=== PATIENT | female | born 1960 | race Caucasian/White ===

== ENCOUNTER → 2020-05-04 | Outpatient (CLI) | payer BC ==
--- NOTE | 2020-05-04 08:34 | US ---
EXAMINATION TYPE: US abdomen complete DATE OF EXAM: 05/04/2020 COMPARISON: NONE CLINICAL HISTORY: R10.32 LLQ PAIN. LLQ pain EXAM MEASUREMENTS: Liver Length: 15 cm Gallbladder Wall: .2 cm CBD: .3 cm Spleen: 10.8 cm Right Kidney: 6.5 x 2.7 x 3.0 cm Left Kidney: 12.0 x 5.0 x 5.5 cm Pancreas: Obscured by bowel gas Liver: Cystic area 1.2 cm left lobe. Gallbladder: wnl Evidence for sonographic Jauregui's sign: No CBD: wnl Spleen: wnl Right Kidney: Atrophic Left Kidney: Multiple anechoic area largest 1.9 x 1.9 x 2.3cm. Upper IVC: wnl Abd Aorta: wnl IMPRESSION: 1. Hepatic cyst. 2. Left renal cysts. These may be peripelvic cysts
== END | disposition home or self-care (01) ==
LOC: RADUSWWP 07:32
PROVIDERS: ATTEND Family Medicine
DX: N28.1 Cyst of kidney, acquired (principal); K76.89 Other specified diseases of liver
CPT/HCPCS: 76700

== ENCOUNTER → 2020-05-15 | Outpatient (CLI) | payer BC ==
--- NOTE | 2020-05-15 15:48 | US ---
EXAMINATION TYPE: US groin LT DATE OF EXAM: 05/15/2020 COMPARISON: NONE CLINICAL HISTORY: R10.32 Left lower quadrant pain. Patient has odd pressure sensation within left zarina in, no pain but noticeable change in the past couple months, no known injury. Possible bowel containing hernia that does increase in size with valsalva, this area does sit adjacen t to iliac vessel within left groin. IMPRESSION: 1. Suspected left inguinal hernia containing loops of bowel.
== END | disposition home or self-care (01) ==
LOC: RADUSWWP 14:49
PROVIDERS: ATTEND Family Medicine
DX: R10.32 Left lower quadrant pain (principal)

== ENCOUNTER → 2020-07-16 | Outpatient (CLI) | payer BC ==
[2020-07-16 11:46] LABS: Basophils % (A) 1 %; Eosinophils # (A) 0.3 k/uL (0-0.7); Eosinophils % (A) 7 %; HCT 42.8 % (34.0-46.0); HGB 13.9 gm/dL (11.4-16.0); Lymphocytes # (A) 1.2 k/uL (1.0-4.8); Lymphocytes % (A) 35 %; MCH 31.2 pg (25.0-35.0); MCHC 32.6 g/dL (31.0-37.0); MCV 95.8 fL (80.0-100.0); Mean Platelet Volume 8.8; Monocytes # (A) 0.3 k/uL (0-1.0); Monocytes % (A) 8 %; Neutrophils # (A) 1.6 k/uL (1.3-7.7); RBC 4.47 m/uL (3.80-5.40); RDW 12.5 % (11.5-15.5); WBC 3.5 k/uL (3.8-10.6)
[2020-07-16 12:49] LABS: Platelet Count 147 k/uL (150-450)
== END | disposition home or self-care (01) ==
LOC: LABPAT 10:14
PROVIDERS: ATTEND Student in an Organized Health Care Education/Training Program
DX: Z01.818 Encounter for other preprocedural examination (principal)
CPT/HCPCS: 36415; 85025; 86850; 86900; 86901; 93005

== ENCOUNTER 2020-07-17 09:49 | Day surgery (SDC) | payer BC ==
[2020-07-13 15:30] VITALS: BMI 28.8
[~2020-07-17 09:49] MED LIST: DEXAMETHASONE SOD PHOSPHATE 4 MG/ML 1 ML VIAL IV ONE; HEPARIN SODIUM,PORCINE 5,000 UNIT/ML 1 ML VIAL SQ PRN; LACTATED RINGERS 1,000 ML IV SCH; MIDAZOLAM 2 MG/2 ML VIAL IV PRN; ONDANSETRON 4 MG/2 ML VIAL IVP ONE; SCOPOLAMINE 1.5MG/72HR PATCH TRANSDERM ONE
[2020-07-17] MEDS ORDERED: MIDAZOLAM 2 MG/2 ML VIAL IV ONE (10:33)
[2020-07-17] MEDS ORDERED: NEOSTIGMINE 1 MG/ML 10 ML VIAL ONE (11:30)
[2020-07-17] MEDS ORDERED: LIDOCAINE 1% INJ 10MG/ML (20 ML MDV) ONE (11:30)
[2020-07-17] MEDS ORDERED: PROPOFOL 10 MG/ML 20 ML VIAL IV ONE (11:30)
[2020-07-17] MEDS ORDERED: KETOROLAC 15 MG/ML 1 ML VIAL ONE (11:30)
[2020-07-17] MEDS ORDERED: ROCURONIUM 10 MG/ML (10 ML VIAL) IV ONE (11:30)
[2020-07-17] MEDS ORDERED: fentaNYL (PF) 50 MCG/ML 2 ML AMP ONE (11:30)
[2020-07-17] MEDS ORDERED: GLYCOPYRROLATE 0.2 MG/ML 2 ML VIAL ONE (11:30)
[2020-07-17] MEDS ORDERED: LIDOCAINE 1%-EPI 1:100,000 20 ML VIAL SQ ONE (12:50)
[2020-07-17] MEDS ORDERED: LACTATED RINGERS 1,000 ML IV ONE (12:51)
[2020-07-17] MEDS ORDERED: ONDANSETRON 4 MG/2 ML VIAL IVP ONE (13:13)
[2020-07-17 13:32] VITALS: TEMP 97.9
[2020-07-17] MEDS: HYDROmorphone 0.5 MG/0.5 ML SYRINGE IVP PRN ×2 (13:36→13:44)
--- NOTE | 2020-07-17 14:02 | P.OP ---
Date of Procedure: 07/17/20 Preoperative Diagnosis: Left inguinal hernia Postoperative Diagnosis: same Procedure(s) Performed: Robotic assisted left inguinal hernia repair Anesthesia: VÍCTOR Surgeon: Wade Arguelles Estimated Blood Loss (ml): 5 Condition: stable Disposition: PACU Description of Procedure: Patient is brought operative suite remained in supine position underwent general endotracheal anesthesia per Department of anesthesia prepped and draped in usual sterile fashion timeout performed correct patient correct procedure correct site was verified a 1.5 cm incision was made and spared umbilicus carried down the fascia which was incised and the abdomen was entered under direct visualization 8 mm port was placed and the abdomen was insufflated no injuries were noted 8 mm ports are placed on the lateral sides of this and the robot was docked the patient was placed in Trendelenburg and there is a left-sided defect noted there was no right-sided defect noted the peritoneum was taken down hernia was reduced the peritoneum was taken down to the pubis medially and the so as laterally and posteriorly. Mesh was placed [employer] associate mesh and noted to have good coverage. The peritoneum was then reapproximated using 20 the lack suture there was a small hole in the peritoneum which was repaired with a 3-0 Vicryl stitch. Stitches were removed ports removed under direct visualization the abdomen was desufflated and the midline fascia was closed with an 0 Vicryl. Patient tolerated the procedure well there are no apparent complications the skin was closed with 4-0 Monocryl and skin glue. Plan - Discharge Summary Discharge Rx Participant: No New Discharge Prescriptions: New Docusate [Colace] 100 mg PO BID 5 Days #10 capsule HYDROcodone/APAP 5-325MG [[place] 5-325] 1 tab PO Q6HR PRN 3 Days #12 tab PRN Reason: Pain No Action PARoxetine [Paxil] 20 mg PO HS Discharge Medication List PARoxetine [Paxil] 20 mg PO HS 07/13/20 [History] Docusate [Colace] 100 mg PO BID 5 Days #10 capsule 07/17/20 [Rx] HYDROcodone/APAP 5-325MG [[place] 5-325] 1 tab PO Q6HR PRN 3 Days #12 tab 07/17/20 [Rx] Follow up Appointment(s)/Referral(s): Wade Arguelles, [Doctor of Osteopathic Medicine] - 2 Weeks Activity/Diet/Wound Care/Special Instructions: No lifting over 10 lbs for 5 weeks No swimming or baths for 3 weeks Shower tomorrow is ok Discharge Disposition: HOME SELF-CARE
[2020-07-17 14:05] VITALS: RESP 16
[2020-07-17] MEDS ORDERED: HYDROcodone/APAP 5-325MG 1 EACH TAB ONE (14:37)
[2020-07-17] MEDS ORDERED: METOCLOPRAMIDE 5 MG/ML 2 ML VIAL ONE (15:04)
[2020-07-17] MEDS ORDERED: METOCLOPRAMIDE 5 MG/ML 2 ML VIAL IVP ONE (15:07)
[2020-07-17 15:51] VITALS: BP 133/71; PULSE 67
== END 2020-07-17 17:22 | disposition home or self-care (01) ==
LOC: OR 09:49
PROVIDERS: ATTEND Student in an Organized Health Care Education/Training Program
DX: K40.90 Unilateral inguinal hernia, without obstruction or gangrene, not specified as recurrent (principal); F32.9 Major depressive disorder, single episode, unspecified; Z79.899 Other long term (current) drug therapy; Z80.3 Family history of malignant neoplasm of breast; Z98.890 Other specified postprocedural states
CPT/HCPCS: 49650; C1781; J2250; J1644; J1100; J2710; J2765; J0690; J2405; J2001; J3010; J1885; J2704; J1170; 86850; 86900; 86901

== ENCOUNTER → 2021-07-22 | Outpatient (CLI) | payer BC ==
--- NOTE | 2021-07-22 09:38 | US ---
EXAMINATION TYPE: US abdomen complete DATE OF EXAM: 07/22/2021 COMPARISON: 05/04/2020 CLINICAL HISTORY: 60-year-old female R93.2 Abn findings. 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 TECHNIQUE: Multiple sonographic images of the abdomen are obtained. FINDINGS: EXAM MEASUREMENTS: Liver Length: 13.5 cm Gallbladder Wall: 0.2 cm CBD: 0.2 cm Spleen: 8.4 cm Right Kidney: 7.6 x 3.7 x 3.4 cm Left Kidney: 12.5 x 5.9 x 5.5. cm Pancreas: Suboptimal visualization of the pancreatic tail due to shadowing from bowel gas. Visualize d head and body show no gross adenopathy. Liver: Minimally complex cyst measuring 1.5 x 1.8 x 0.9cm seen in left lobe (versus 1.2 cm, previou sly). Some minimal internal septation or nodularity/debris is present. Given indolent behavior, consi cass annual surveillance. Gallbladder: wnl Evidence for sonographic Jauregui's sign: no CBD: wnl Spleen: wnl Right Kidney: Atrophic. Tiny cortical cyst noted = 0.5 x 0.6 x 0.7cm. Left Kidney: appearance of prominent calyces throughout; possible cortical cyst lower pole = 0.8 x 0 .9 x 0.8cm; extracapsular hypoechoic crescent shaped area noted suggestive of sonographic " sweat sig n" for chronic kidney disease. Upper IVC: wnl Abd Aorta: size is wnl, borderline ectatic upper portion at 2.5 cm. IMPRESSION: 1. A minimally complex cyst in the left liver lobe measures 1.8 cm versus 1.2 cm on 05/04/2020. A hiram ign etiology is suggested given indolent behavior. Consider annual surveillance. 2. No gallstones or biliary ductal dilatation. 3. Atrophic right kidney. 4. Some centrally located cystic areas in the left kidney similar to prior, likely parapelvic cysts. The largest measures 9 mm. At the patient has worsening kidney function, consider CT urogram or kidne y MRI to ensure that these represent parapelvic cysts rather than hydronephrosis.
== END | disposition home or self-care (01) ==
LOC: RADUSWWP 08:15
PROVIDERS: ATTEND Family Medicine
DX: K76.89 Other specified diseases of liver (principal); N26.1 Atrophy of kidney (terminal); N28.1 Cyst of kidney, acquired
CPT/HCPCS: 76700

== ENCOUNTER → 2021-11-08 | Outpatient (CLI) | payer BC ==
--- NOTE | 2021-11-11 22:10 | CT ---
EXAMINATION TYPE: CT abdomen pelvis wo con DATE OF EXAM: 11/08/2021 COMPARISON: Ultrasound dated 07/22/2021 HISTORY: renal cyst and hydronephrosis CT DLP: 713.50 mGycm Automated exposure control for dose reduction was used. TECHNIQUE: Helical acquisition of images was performed from the lung bases through the pelvis. FINDINGS: LUNG BASES: Lingular basal atelectasis with tiny 2 mm nodule in the right lung bases. LIVER/GB: A few hepatic hypodensities likely representing hepatic cysts. Unremarkable gallbladder. PANCREAS: Fatty infiltration of the pancreatic head. SPLEEN: No significant abnormality is seen. ADRENALS: No significant abnormality is seen. KIDNEYS: Atrophic right kidney. Multiple left parapelvic renal cysts. Associated hydronephrosis is un likely yet cannot be excluded by this unenhanced CT scan. No gross suspicious renal lesion yet cannot be totally excluded. No hydroureter bilaterally. No right-sided hydronephrosis. FREE AIR: No free air is visualized RETROPERITONEAL ADENOPATHY: None visualized REPRODUCTIVE ORGANS: No gross uterine or adnexal mass. URINARY BLADDER: Incompletely distended. PELVIC ADENOPATHY: No pathologically enlarged pelvic lymph nodes. OSSEOUS STRUCTURES: No gross aggressive bone lesion. BOWEL: No significant abnormality is seen. OTHER: Scattered arterial atherosclerotic calcifications. No sizable ascites. Small fat-containing um bilical hernia. Right inferior pelvic fat stranding, possibly related to previous omental fat infarct . Suspected changes of previous hernia repair in the left lower quadrant. Left fat-containing inguina l hernia is still noted. IMPRESSION: Left parapelvic renal cysts. Associated hydronephrosis is unlikely yet cannot be totally excluded by this nonenhanced CT scan. CT urogram or renal scintigraphy would be the modality of choice to rule ou t associated hydronephrosis. No right-sided hydronephrosis or hydroureter bilaterally. Atrophic right kidney. Other incidental findings as described above.
== END | disposition home or self-care (01) ==
LOC: RADCTMAIN 17:40
PROVIDERS: ATTEND Urology
DX: N28.1 Cyst of kidney, acquired (principal); N13.30 Unspecified hydronephrosis; N26.1 Atrophy of kidney (terminal)
CPT/HCPCS: 74176

== ENCOUNTER → 2022-01-03 | Outpatient (CLI) | payer BC ==
--- NOTE | 2022-01-03 08:45 | US ---
EXAMINATION TYPE: US renal artery duplex complet DATE OF EXAM: 01/03/2022 COMPARISON: CT 11/08/2021, and US 07/22/2021 CLINICAL HISTORY: N26.1 ATROPHY OF KIDNEY (TERMINAL). MEASUREMENTS: RENAL SIZE: Rt Kidney: 6.1 x 3.1 x 3.5 cm Lt Kidney: 13.4 x 6.9 x 6.6 cm RESISTANCE INDEX Right: 0.59 Left: 0.58 RA/AO RATIO (< 3.5 ) Right: 2.2 Left: 1.2 RA VELOCITY ( < 180 cm/s) Right: 188 - 239 proximally Left: 137 Aorta unremarkable. Right renal atrophy, left parapelvic cysts noted, largest measures 2.4 x 2.2 cm. There is mildly elevated right renal artery velocity proximally. There is color perfusion to right ki dney with normal segmental and arcuate flow. Good upstroke on segmentals at renal hilum. IMPRESSION: 1. Right renal artery ultrasound with elevated velocities suggesting underlying stenosis. The right k idney appears atrophic. 2. Left renal vascular evaluation appears normal.
== END | disposition home or self-care (01) ==
LOC: RADUSWWP 06:55
PROVIDERS: ATTEND Internal Medicine Nephrology
DX: N26.1 Atrophy of kidney (terminal) (principal)
CPT/HCPCS: 93975

== ENCOUNTER 2022-03-23 04:26 | Emergency (ER) | payer BC ==
[2022-03-23 04:37] VITALS: RESP 16; TEMP 97.5
[2022-03-23] MEDS ORDERED: HYDROcodone/APAP 5-325MG 1 EACH TAB PO STA (05:20)
[2022-03-23 05:41] VITALS: PULSE 65
[2022-03-23] MEDS ORDERED: ONDANSETRON ODT 4 MG TAB PO STA (05:44)
--- NOTE | 2022-03-23 06:00 | XR ---
EXAMINATION TYPE: XR wrist complete RT DATE OF EXAM: 03/23/2022 COMPARISON: NONE HISTORY: Fall. Pain TECHNIQUE: 4 views FINDINGS: The carpal bones are intact. I see no fracture nor dislocation. There is some soft tissue s welling on the dorsum of the carpus. Metacarpals are intact. IMPRESSION: Soft tissue swelling. No fracture seen.
--- NOTE | 2022-03-23 06:10 | CT ---
EXAMINATION TYPE: CT brain wo con DATE OF EXAM: 03/23/2022 COMPARISON: None HISTORY: fall CT DLP: 1143.4 mGycm Automated exposure control for dose reduction was used. Ventricles have normal size. There is no mass effect or midline shift. No sign of intracranial hemorr sharif. The calvarium is intact. There is right lateral frontal scalp hematoma. No fractures seen. Skul l base is intact. There is normal aeration of the mastoid sinuses. IMPRESSION: Normal CT scan of the brain. Right lateral frontal scalp hematoma.
--- NOTE | 2022-03-23 06:39 | ED ---
Head Injury HPI - General Chief complaint: Head Injury Stated complaint: Head Injury Time Seen by Provider: 03/23/22 05:13 Source: patient Mode of arrival: ambulatory Limitations: no limitations - History of Present Illness Initial comments: This patient is 61-year-old woman who states that as she was walking into work she ran into a sign in the darkened parking lot. The sign struck her right hand and her head, right temporal area. She is having swelling and pain of both of these locations. There was no loss of consciousness. She denies neck pain or injury. No neurologic symptoms. No weakness or numbness of the hand though she does have pain with flexion MD Complaint: head injury -: hour(s) Mechanism of Injury: other Location: temporal Loss of Consciousness: no Previous Trauma to this Area: No Place: work Severity: moderate Quality: aching Consistency: constant Provoking factors: none known Other Injuries: RUE Associated Symptoms: denies other symptoms - Related Data Home Medications Medication Instructions Recorded Confirmed PARoxetine [Paxil] 20 mg PO HS 07/13/20 07/17/20 Previous Rx's Medication Instructions Recorded Docusate [Colace] 100 mg PO BID 5 Days #10 capsule 07/17/20 HYDROcodone/APAP 5-325MG [[place] 1 tab PO Q6HR PRN 3 Days #12 tab 07/17/20 5-325] Acetaminophen-Codeine 300-30mg 1 tab PO Q4H PRN #20 tablet 03/23/22 [Tylenol w/codeine #3] Allergies/Adverse reactions: Allergies Allergy/AdvReac Type Severity Reaction Status Date / Time No Known Allergies Allergy Verified 07/17/20 10:15 Review of Systems ROS Statement: Those systems with pertinent positive or pertinent negative responses have been documented in the HPI. ROS Other: All systems not noted in ROS Statement are negative. Constitutional: Denies: fever, weakness Eyes: Denies: eye pain, vision change ENT: Denies: ear pain, hearing loss, epistaxis Cardiovascular: Denies: chest pain, palpitations, syncope Gastrointestinal: Denies: abdominal pain, nausea, vomiting Musculoskeletal: Reports: as per HPI, joint swelling, arthralgia. Denies: back pain Skin: Denies: rash Neurological: Reports: headache. Denies: weakness, numbness, paresthesias, confusion, abnormal gait Hematological/Lymphatic: Denies: easy bleeding Past Medical History Additional Past Medical History / Comment(s): kidney stones History of Any Multi-Drug Resistant Organisms: None Reported Past Surgical History: Breast Surgery, Orthopedic Surgery Additional Past Surgical History / Comment(s): colonoscopy, breast biopsy, cole. bunionectomy, D & C, skin tags removed Past Anesthesia/Blood Transfusion Reactions: No Reported Reaction Smoking Status: Never smoker - Past Family History Sister(s) Family Medical History: Cancer Additional Family Medical History / Comment(s): breast Mother Family Medical History: Cancer General Exam Limitations: no limitations General appearance: alert, in no apparent distress Head exam: Present: normocephalic, other (Hematoma right temporal area. No palpable deformity. Moderate tenderness) Eye exam: Present: normal appearance, PERRL, EOMI. Absent: scleral icterus, conjunctival injection, nystagmus, periorbital swelling, periorbital tenderness ENT exam: Present: normal oropharynx, TM's normal bilaterally, normal external ear exam Neck exam: Present: normal inspection, full ROM. Absent: tenderness Respiratory exam: Present: normal lung sounds bilaterally. Absent: respiratory distress, wheezes, rales, rhonchi, stridor Cardiovascular Exam: Present: regular rate, normal rhythm, normal heart sounds. Absent: systolic murmur, diastolic murmur, rubs GI/Abdominal exam: Present: soft. Absent: tenderness Right Elbow exam: Present: normal inspection, full ROM. Absent: tenderness, swelling Forearm Wrist exam: Present: normal inspection, full ROM. Absent: tenderness, swelling Hand Wrist exam: Present: tenderness, swelling, ecchymosis. Absent: full ROM, abrasion, laceration, deformity, crepitus, dislocation, erythema, amputation, nail avulsion, subungual hematoma Back exam: Present: normal inspection. Absent: vertebral tenderness Course Vital Signs 03/23/22 03/23/22 03/23/22 04:31 05:39 06:53 Temperature 97.5 F L Pulse Rate 67 65 65 Respiratory 16 16 16 Rate Blood Pressure 140/82 140/86 140/68 O2 Sat by Pulse 97 99 98 Oximetry Disposition Clinical Impression: Hematoma of scalp, Hand contusion Disposition: HOME SELF-CARE Condition: Good Instructions (If sedation given, give patient instructions): Head Injury (ED) Prescriptions: Acetaminophen-Codeine 300-30mg [Tylenol w/codeine #3] 1 tab PO Q4H PRN #20 tablet PRN Reason: Pain Is patient prescribed a controlled substance at d/c from ED?: No Referrals: Patt Castro III, MD [Primary Care Provider] - 1-2 days
[2022-03-23 06:54] VITALS: BP 140/68
== END 2022-03-23 07:04 | disposition home or self-care (01) ==
LOC: EC 04:26
DX: S00.03XA Contusion of scalp, initial encounter (principal); S60.221A Contusion of right hand, initial encounter; W22.8XXA Striking against or struck by other objects, initial encounter; Y92.69 Other specified industrial and construction area as the place of occurrence of the external cause; Y93.01 Activity, walking, marching and hiking
CPT/HCPCS: 70450; 99284

== ENCOUNTER → 2022-05-13 | Outpatient (CLI) | payer BC ==
--- NOTE | 2022-05-13 09:26 | BD ---
EXAMINATION TYPE: Axial Bone Density DATE OF EXAM: 05/13/2022 COMPARISON: NONE CLINICAL HISTORY: 61 years year old Female. ICD-10 CODE: [id number] SCREENING FOR OSTEO Height: 5'6 Weight: 182 FRAX RISK QUESTIONS: Secondary Osteoporosis: RISK FACTORS HISTORY OF: Postmenopausal woman: Y MEDICATIONS: Additional Medications: blood pressure, anxiety Additional History: EXAM MEASUREMENTS: Bone mineral densitometry was performed using the [employer] System. Bone mineral density as measured about the Lumbar spine is: ----- L1-L4(G/cm2): 1.059 T Score Values are as follows: ----- L1: -0.8 ----- L2: -1.7 ----- L3: -0.7 ----- L4: -0.9 ----- L1-L4: -1.0 Bone mineral density about the R hip (g/cm2):0.810 Bone mineral density about the L hip (g/cm2): 0.832 T Score values are as follows: -----R Neck: -1.6 -----L Neck: -1.5 -----R Total: -0.7 -----L Total: -0.8 FRAX%s: The graph provided illustrates a 8.6% chance for a major osteoporotic fx and a 0.9% chance fo r the hips probability for fx in 10 years time. IMPRESSION: Osteopenia (T Score between -2.5 and -1). There is slightly increased risk of fracture and the patient may be considered for treatment. Re-Screen 2-5 years. NOTE: T-SCORE=SD OF THE YOUNG ADULT MEAN.
--- NOTE | 2022-05-14 08:58 | MM ---
Reason for Exam: Screening (asymptomatic). Last screening mammogram was performed 10 month(s) ago. Patient History: Menarche at age 14. First Full-Term at age 33. Late child-bearing (after 30). Postmenopausal. 03/11/2000, Benign Excisional Biopsy on the left side. Mother had breast cancer, age 45. Sister had breast cancer, age 50. Sister had breast cancer, age 51. Risk Values: Halie 5 year model risk: 4.7%. NCI Lifetime model risk: 21.0%. Prior Study Comparison: 01/24/2000 Bilateral Screening Mammogram, [facility]. 02/06/2000 Left Special View Mammogram, [facility]. 12/29/2002 Bilateral Diagnostic Mammogram, [facility]. Tissue Density: The breast tissue is heterogeneously dense. This may lower the sensitivity of mammography. Findings: Analyzed By CAD. Grouped calcifications within the right breast middle depth 4.5 cm from the nipple in the posterior nipple line slightly medial on CC view. Grouped calcifications within the left breast middle depth 5.4 cm from the nipple. Bilateral on CC. Overall Assessment: Incomplete: need additional imaging evaluation, BI-RAD 0 Management: Special View Mammogram of both breasts. A clinical breast exam by your physician is recommended on an annual basis and results should be correlated with mammographic findings. [facility] will attempt to contact patient to return for supplemental views and ultrasound if indicated. Electronically signed and approved by: Jae Rodriguez DO
== END | disposition home or self-care (01) ==
LOC: RADMAMWWP 07:37
PROVIDERS: ATTEND Family Medicine
DX: Z12.31 Encounter for screening mammogram for malignant neoplasm of breast (principal); Z13.820 Encounter for screening for osteoporosis; M85.89 Other specified disorders of bone density and structure, multiple sites; Z78.0 Asymptomatic menopausal state; Z80.3 Family history of malignant neoplasm of breast
CPT/HCPCS: 77063; 77067; 77080

== ENCOUNTER → 2022-05-15 | Outpatient (CLI) | payer BC ==
--- NOTE | 2022-05-15 15:30 | MM ---
Reason for Exam: Additional evaluation requested from abnormal screening. Last screening mammogram was performed less than 1 month ago. Patient History: Menarche at age 14. First Full-Term at age 33. Late child-bearing (after 30). Postmenopausal. Patient has history of breast feeding. 03/11/2000, Benign Excisional Biopsy on the left side. Mother had breast cancer, age 45. Sister had breast cancer, age 50. Sister had breast cancer, age 51. Risk Values: Halie 5 year model risk: 4.7%. NCI Lifetime model risk: 21.0%. Prior Study Comparison: 01/24/2000 Bilateral Screening Mammogram, [facility]. 02/06/2000 Left Special View Mammogram, [facility]. 12/29/2002 Bilateral Diagnostic Mammogram, [facility]. 12/29/2002 Right Diagnostic Ultrasound, [facility]. 11/26/2020 Bilateral MG screening mammo w CAD - 2, [facility]. 07/22/2021 Bilateral MG screening mammo w CAD - 2, [facility]. 05/13/2022 Bilateral MG 3D screening mammo w/cad, [facility]. Tissue Density: The breast tissue is heterogeneously dense. This may lower the sensitivity of mammography. Findings: Analyzed By CAD. Bilateral diffuse regional and punctate microcalcifications are redemonstrated. They've become less pronounced on the noncemented size magnification views. Questionable nodularity central inner maxillary CVL should be reassessed at 6 month follow-up. Finer group of punctate microcalcifications lateral left CC view at a middle depth can also be reassessed at follow-up. Overall Assessment: Probably benign, BI-RAD 3 Management: Diagnostic Mammogram of the left breast in 6 months. Note the patient's very high Halie score and overall lifetime risk for the development of breast cancer. Consider specialist referral to assess eligibility for a risk reducing agent. In addition, the patient may qualify for future screening with alternating mammogram and breast MRI. Patient should continue monthly self breast exams. Results were given to the patient verbally at the time of exam. Electronically signed and approved by: Jay Andrade M.D. Radiologist
== END | disposition home or self-care (01) ==
LOC: RADMAMWWP 14:21
PROVIDERS: ATTEND Family Medicine
DX: R92.8 Other abnormal and inconclusive findings on diagnostic imaging of breast (principal); Z78.0 Asymptomatic menopausal state; Z80.3 Family history of malignant neoplasm of breast; Z98.890 Other specified postprocedural states
CPT/HCPCS: 77062; 77066

== ENCOUNTER → 2022-09-05 | Outpatient (CLI) | payer BC ==
--- NOTE | 2022-09-05 09:56 | US ---
EXAMINATION TYPE: US renal artery duplex complet DATE OF EXAM: 09/05/2022 COMPARISON: US dated 12/14/2021 CLINICAL HISTORY: Q27.1 CONGENITAL RENAL ARTERY STENOSIS. MEASUREMENTS: RENAL SIZE: Rt Kidney: 7.8 x 3.3 x 3.2 cm Lt Kidney: 12.9 x 6.1 x 6.4 cm RESISTANCE INDEX Right: 0.50 Left: 0.57 RA/AO RATIO (< 3.5 ) Right: 1.2 Left: 1.5 RA VELOCITY ( < 180 cm/s) Right: 119 Left: 149 Aorta unremarkable. Right renal atrophy. Left parapelvic renal cysts. Unable to prove increased veloc ity in right renal artery that was seen on prior, after multiple attempts. Limited color flow in righ t renal. There does appear to be normal segmental and arcuate artery flow. IMPRESSION: No evidence for renal artery stenosis.
== END | disposition home or self-care (01) ==
LOC: RADUSWWP 08-25 08:09
PROVIDERS: ATTEND Surgery
DX: Q27.1 Congenital renal artery stenosis (principal)
CPT/HCPCS: 93975

== ENCOUNTER → 2022-10-01 | Outpatient (CLI) | payer BC ==
[2022-10-02 03:12] LABS: Chol/HDL Ratio 3.53 Ratio; LDL Cholesterol,Calculated 131.8 mg/dL (0.0-131.0); VLDL Calculation 14.44 mg/dL (5.00-40.00)
== END | disposition home or self-care (01) ==
LOC: LABWHC1 13:08
PROVIDERS: ATTEND Family Medicine
DX: Z13.220 Encounter for screening for lipoid disorders (principal)
CPT/HCPCS: 36415; 80061

== ENCOUNTER → 2022-10-16 | Outpatient (CLI) | payer BC ==
[2022-10-16 12:28] LABS: Basophils % (A) 1 %; Eosinophils # (A) 0.2 k/uL (0-0.7); Eosinophils % (A) 4 %; HCT 37.6 % (34.0-46.0); HGB 12.4 gm/dL (11.4-16.0); Lymphocytes # (A) 1.3 k/uL (1.0-4.8); Lymphocytes % (A) 34 %; MCV 93.8 fL (80.0-100.0); Mean Platelet Volume 10.3; Monocytes # (A) 0.3 k/uL (0-1.0); Monocytes % (A) 7 %; Neutrophils % (A) 52 %; RBC 4.01 m/uL (3.80-5.40); RDW 12.7 % (11.5-15.5); WBC 3.9 k/uL (3.8-10.6)
[2022-10-16 12:30] LABS: Platelet Count 194 k/uL (150-450)
[2022-10-16 16:01] LABS: African American GFR (CKD) 62.3 (60.0-200.0); Anion Gap 10.8 mmol/L (10.00-18.00); Blood Urea Nitrogen 23.7 mg/dL (9.0-27.0); Carbon Dioxide 26.2 mmol/L (20.0-27.5); Non-African American GFR(CKD) 53.8 (60.0-200.0); Potassium 4.2 mmol/L (3.5-5.5)
[2022-10-16 17:12] LABS: Appearance,Urine Clear (Clear); Bilirubin,Urine Negative (Negative); Blood,Urine Negative (Negative); Color,Urine Yellow (Yellow); Ketones,Urine Negative (Negative); Nitrite,Urine Negative (Negative); Specific Gravity,Urine 1.021 (1.001-1.030); Urobilinogen,Urine 0.2 (0.2,1.0)
== END | disposition home or self-care (01) ==
LOC: LABWHC1 10:24
PROVIDERS: ATTEND Obstetrics & Gynecology
DX: Z01.812 Encounter for preprocedural laboratory examination (principal); I10 Essential (primary) hypertension; N81.11 Cystocele, midline; N39.3 Stress incontinence (female) (male)
CPT/HCPCS: 36415; 80051; 81003; 82565; 82947; 84520; 85025; 93005

== ENCOUNTER 2022-10-27 05:40 | Observation (INO) | payer BC ==
--- NOTE | 2022-10-24 13:21 | P.HPOB ---
History of Present Illness H&P Date: 10/24/22 Chief Complaint: pelvic organ prolapse, stress urinary incontinence Ms. Roberts is a 62 year old who presents for surgical management of cystocele, uterovaginal prolapse, and stress urinary incontinence. The incontinence has been present for many years and has become bothersome. She has leakage of urine with cough, sneeze, laugh, and lifting. Her job requires a significant amount of lifting so this is an issue for her. She has at least one accident daily, sometimes more. The patient noticed the prolapsed a few months ago and describes it as golf-ball sized. The symptoms are accentuated by standing, lifting, or straining. Past Medical History Past Medical History: Hypertension, Renal Disease Additional Past Medical History / Comment(s): kidney stones chronic kidney disease 3A History of Any Multi-Drug Resistant Organisms: None Reported Past Surgical History: Breast Surgery, Hernia Repair, Orthopedic Surgery Additional Past Surgical History / Comment(s): colonoscopy, breast biopsy, cole. bunionectomy, D & C, skin tags removed, inguinal hernia repair Past Anesthesia/Blood Transfusion Reactions: No Reported Reaction Additional Past Anesthesia/Blood Transfusion Reaction / Comment(s): no blood tx hx Smoking Status: Never smoker - Past Family History Sister(s) Family Medical History: Cancer Additional Family Medical History / Comment(s): breast Mother Family Medical History: Cancer Medications and Allergies Home Medications Medication Instructions Recorded Confirmed Type PARoxetine [Paxil] 10 mg PO HS 07/13/20 10/22/22 History Vit D(Unk) 1 tab PO DAILY 10/22/22 10/22/22 History amLODIPine BESYLATE 5 mg PO DAILY 10/22/22 10/22/22 History calcitrioL [Calcitriol] 0.25 mcg PO WEEKLY 10/22/22 10/22/22 History Allergies Allergy/AdvReac Type Severity Reaction Status Date / Time No Known Allergies Allergy Verified 10/22/22 14:11 Exam Focused physical exam is performed. This is an overweight female in no apparent distress. On cardiovascular exam, regular rate and rhythm is appreciated with normal S1, S2. Lungs are clear to ascultation bilaterally. Abdomen soft, non- tender. On pelvic exam, stage 2 cystocele and stage 1 uterovaginal prolapse are noted. Post-void residual is 5cc. Cervix is grossly unremarkable and uterus is non-enlarged, non-tender. Assessment and Plan Assessment: 62 year old with stage 2 cystocele, stage 1 uterovaginal prolapse, and stress urinary incontinence here for surgical management. Plan: Risks, benefits, and alternatives to surgery are discussed with the patient including risk of bleeding, infection, damage to surrounding structures such as bladder/bowels/ureters, laparotomy, bladder perforation, postoperative VTE, postoperative urinary retention, postoperative urinary tract infeciton, TVT sling mesh erosion into the vagina, and need for postoperative short-term indwelling catheter use. Patient understands these risks and desires to proceed with Robotic Assisted Laparoscopic Vaginal Hysterectomy, Bilateral Salpingoophorectomy, TVT Midurethral Sling, Anterior Repair, Cystoscopy, Possible Laparotomy. Time with Patient: Less than 30 (10 minutes)
[2022-10-27] MEDS ORDERED: droPERidol 5 MG/2 ML VIAL IVP ONE ×2 (06:12→10:17)
[2022-10-27] MEDS ORDERED: DEXAMETHASONE SOD PHOSPHATE 4 MG/ML 1 ML VIAL IV ONE (06:12)
[2022-10-27] MEDS ORDERED: ONDANSETRON 4 MG/2 ML VIAL IVP ONE (06:12)
[2022-10-27] MEDS ORDERED: LIDOCAINE 1% (10MG/ML) FOR IV START INTRADERMA PRN (06:12)
[2022-10-27] MEDS: LACTATED RINGERS 1,000 ML IV SCH ×2 (06:40→15:56)
[2022-10-27] MEDS ORDERED: HYDROmorphone 0.5 MG/0.5 ML SYRINGE IVP PRN (07:00)
[2022-10-27] MEDS ORDERED: MIDAZOLAM 2 MG/2 ML VIAL IV ONE (07:04)
[2022-10-27] MEDS ORDERED: diphenhydrAMINE 50 MG/ML 1 ML VIAL ONE (07:21)
[2022-10-27] MEDS ORDERED: diphenhydrAMINE 50 MG/ML 1 ML VIAL IVP ONE ×2 (07:24→07:41)
[2022-10-27] MEDS ORDERED: GLYCOPYRROLATE 0.2 MG/ML 2 ML VIAL ONE (07:38)
[2022-10-27] MEDS ORDERED: LIDOCAINE 2% INJ 20 MG/ML (2 ML VIAL) ONE (07:38)
[2022-10-27] MEDS ORDERED: fentaNYL (PF) 50 MCG/ML 2 ML AMP ONE (07:38)
[2022-10-27] MEDS ORDERED: WATER FOR INJECTION, STERILE 10 ML VIAL IV ONE (07:38)
[2022-10-27] MEDS ORDERED: SUCCINYLCHOLINE CHLORIDE 200 MG/10 ML VIAL IV ONE (07:38)
[2022-10-27] MEDS ORDERED: ePHEDrine 50 MG/ML 1 ML VIAL ONE (07:38)
[2022-10-27] MEDS ORDERED: ROCURONIUM 10 MG/ML (5 ML VIAL) IV ONE (07:38)
[2022-10-27] MEDS ORDERED: MORPHINE SULFATE (PF) 0.3 MG/0.3 ML SYR ONE (07:38)
[2022-10-27] MEDS ORDERED: NEOSTIGMINE 1 MG/ML 10 ML VIAL ONE (07:38)
[2022-10-27] MEDS ORDERED: PROPOFOL 10 MG/ML 20 ML VIAL IV ONE (07:38)
[2022-10-27] MEDS ORDERED: ESTRADIOL 0.1 MG/GM VAGINAL CREAM 42.5 GM TUBE VAGINAL ONE (08:32)
[2022-10-27] MEDS ORDERED: VASOPRESSIN 20 UNIT/ML 1 ML VIAL SQ ONE (08:32)
[2022-10-27] MEDS ORDERED: BUPIVACAINE (PF) 0.25% 30 ML VIAL SQ ONE (09:30)
[2022-10-27] MEDS ORDERED: ONDANSETRON 4 MG/2 ML VIAL IVP PRN (10:08)
[2022-10-27] MEDS ORDERED: METOCLOPRAMIDE 5 MG/ML 2 ML VIAL IVP PRN (10:08)
--- NOTE | 2022-10-27 10:08 | P.OP ---
Date of Procedure: 10/27/22 Preoperative Diagnosis: 1. Stage 2 Cystocele 2. Stage 1 Uterovaginal Prolapse 3. Stress Urinary Incontinence Postoperative Diagnosis: Same Procedure(s) Performed: Robotic Assisted Total Laparoscopic Hysterectomy, Bilateral Salpingoophrectomy, TVT Midurethral Sling, Cystoscopy Implants: [place] [employer] Advantage Fit Midurethral Sling Anesthesia: VÍCTOR Surgeon: Elba Cobian Transfer Coordinator #1: Meg Castellano Estimated Blood Loss (ml): 600 IV fluids (ml): 50 Urine output (ml): 75 (clear) Pathology: other (uterus, bilateral fallopian tubes, bilateral ovaries) Condition: stable Disposition: floor Indications for Procedure: This is a 62 year old female with a stage 2 cystocele, stage 1 uterovaginal prolapse, and stress urinary incontinence presenting for surgical management. Risks, benefits, and alternatives to Robotic Assisted Laparoscopic Hystereomy, BSO, Anterior Repair, and TVT midurethral sling including risk of infection, bleeding, damage to surrounding structures including bladder/bowel/ureters, urinary retention, UTI, and need for short term indwelling catheter. The patient understands these risks and desires to proceed with surgery as scheduled. Operative Findings: Grossly normal appearing uterus, bilateral fallopian tubes and ovaries. Normal appearing pelvis. Some left upper quadrant adhesions noted. Otherwise normal abdomen. Description of Procedure: Prior to the beginning of the procedure, the team paused to verify the patients identity, the procedure to be performed (in accordance with the consent,) and the correct side/site. The patient was positioned appropriately. All relevant images and results were properly labeled and displayed. We addressed antibiotic prophylaxis and fluids for irrigation as applicable to this patient. Any safety precautions were addressed. The patient was taken to the operating room where general anesthesia was induced without difficulty. She was then positioned in the dorsal lithotomy position in [facility]. Positioning included placing her arms at her sides. After the patient was placed in what was felt to be a neurologically safe position, deep Trendelenburg position was tested prior to the operative procedure, to ensure that she would not move on the operating table. The patient was then prepped and draped in the normal sterile fashion for a combined abdominovaginal surgery. A Marino catheter was placed in the bladder for continuous drainage. Uterus was sounded to 7.5 cm. [employer] manipulator was placed in the uterus for manipulation. Attention was then placed to the abdomen. The normal length Veress needle was introduced into the abdominal cavity while tenting the abdominal wall. Low pressure was noted confirming appropriate placement. The abdomen was then insufflated to 15mmHg for the remainder of the case. The Veress needle was removed, and an 8 mm port was placed at the umbilical site under direct laparscopic visualization and there was no evidence of injury from the trocar placement. Visualization of the intraabdominal cavity showed normal pelvic anatomy without evidence of adhesions. The port sites for the remainder of the case were then measured out and placed under direct visualization. On the left side, one 8 mm robotic assist port and one 12 mm assist port were placed. On the right side, one 8 mm robotic port was placed.The [employer] robot was then brought to the operative field in a lateral docking style to the left of the patient and the robot was docked to the ports. All robotic instruments were brought into the pelvis under direct visualization with monopolar scissors in arm #3 and vessel sealer in arm #1. Bilateral ureters were visualized prior to starting the surgery. The right IP ligament was cauterized and cut, taking care to avoid the ureter. The ovary and fallopian tube were cauterized and cut away from the pelvic side wall sequentially to the level of the uteroovarian ligement, which was cauterized and cut. The right round ligament was cauterized and cut. Broad ligament was opened and bladder flap created. This was repeated on the left side in the same fashion. The peritoneum of the bilateral broad ligaments was then taken down and monopolar cautery used to skeletonize the uterine arteries bilaterally. During the course of this dissection, the anterior leaf of the broad ligament was also taken down over the anterior aspect of the uterus and cervix to create a bladder flap. The bladder was then dissected off the cervix and upper vagina with the monopolar scissors and gentle blunt dissection. The bilateral uterine arteries were then cauterized and divided at the level of the internal cervical os. The monopolar cautery was used to incise the vaginal cuff. The uterus, along with the cervix was removed vaginally. Cuff was closed in with 0-Stratifix sutures. Attention was then turned to the vaginal portion of the procedure. After hysterectomy had been completed, the anterior wall of the vagina appeared well support and there was not significant cystocele. The decision was made to proceed without performing anterior repair as it was no longer indicated. The TVT was then started. Two sites were marked on the anterior abdominal wall with a marking pen, one 1 fingerbreadth to the left and the other 1 fingerbreadth to the right of the midline, just above the pubic bone.Two sites were marked on the anterior abdominal wall with a marking pen, one 1 fingerbreadth to the left and the other 1 fingerbreadth to the right of the midline, just above the pubic bone. Attention was now turned to the vaginal field where a 18-Stateless Marino catheter was already present, and the urine was drained. Retractors were used for visualization. The anterior vaginal wall over the location of the mid urethra was then injected with 1% lidocaine with epinephrine in the mid portion of the vagina and the lateral aspects heading to the inferior surface of the pubic bone bilaterally. Two Allis clamps were then placed approximately 2 cm apart with the mid portion of the Allis clamps corresponding to the mid portion of the urethra as determined by palpation of the Marino within the patient's urethra. A scalpel was then used to incise between the 2 Allis clamps, and Metzenbaum scissors were used to dissect the vaginal mucosa off the urethra heading to the inferior surface of the pubic bone bilaterally. The [place] [employer] Advantage Fit TVT trocar coupled to the plastic introducer sheath was now placed through the right sided anterior vaginal wall channel, and the trocar was rotated through the right retropubic space with careful attention being paid to stay beneath and behind the pubic bone as it rotated through the space up to the previously made vania on the right anterior abdominal wall. The TVT trocar was uncoupled from the introducer sheath and the sheath was tagged and left in place. The TVT trocar was now placed into the second introducer sheath and positioned within the left anterior vaginal wall channel and rotated through the left retropubic space with careful attention being paid to stay beneath and behind the pubic bone as it rotated through this site up to the previously made vania on the left anterior abdominal wall. 70-degree cystourethroscope was used to confirm that there was no trocar placement trauma to the bladder from either side, and no trauma to the urethra. Bilateral ureteral jets were visualized. A global survey of the bladder was performed and did not reveal any trauma to the bladder from the robotic hysterectomy portion of the procedure. Therefore, the bladder was drained, and the mesh was brought through the abdominal wall site. The mesh was brought to sit underneath of the urethra without any tensioning at all as determined by a hemostat used as a spacer between the urethra and the sling. The hemostat as a spacer was used to stabilize the position of the mesh as plastic sheaths were removed through the abdominal wall site. The skin wounds were closed with the use of skin glue after trimming the mesh. The vaginal wound was closed with a running stitch of 2-0 Vicryl. 1-inch vaginal packing coated with Estrace was used to pack the vagina at the end of the case as a precautionary measure. Hemostasis was noted to be excellent throughout, and final sponge, instrument, and needle count was noted to be correct. The patient was moved back to the preoperative holding area in stable condition having tolerated the procedure well.
[2022-10-27] MEDS: IBUPROFEN 600 MG TAB PO PRN (15:57)
[2022-10-27] MEDS: ACETAMINOPHEN TAB 325 MG TAB PO PRN (19:39)
[2022-10-27] MEDS: diphenhydrAMINE 50 MG/ML 1 ML VIAL IVP PRN (22:07)
[2022-10-28] MEDS: IBUPROFEN 600 MG TAB PO PRN ×4 (00:47→20:57)
[2022-10-28] MEDS: LACTATED RINGERS 1,000 ML IV SCH (00:54)
[2022-10-28] MEDS: ACETAMINOPHEN TAB 325 MG TAB PO PRN ×3 (03:40→16:48)
[2022-10-28] MEDS: BENZOCAINE/MENTHOL LOZENG 1 EACH LOZENGE MUCOUS MEM PRN ×3 (03:41→23:24)
[2022-10-28 06:35] LABS: Basophils % (A) 1 %; Eosinophils # (A) 0.1 k/uL (0-0.7); Eosinophils % (A) 1 %; HCT 32.8 % (34.0-46.0); HGB 10.8 gm/dL (11.4-16.0); Lymphocytes # (A) 1.3 k/uL (1.0-4.8); Lymphocytes % (A) 18 %; MCH 31.8 pg (25.0-35.0); MCV 96.1 fL (80.0-100.0); Mean Platelet Volume 7.8; Monocytes # (A) 0.5 k/uL (0-1.0); Monocytes % (A) 7 %; Neutrophils # (A) 5.1 k/uL (1.3-7.7); Neutrophils % (A) 72 %; Platelet Count 208 k/uL (150-450); RBC 3.41 m/uL (3.80-5.40); RDW 12.6 % (11.5-15.5); WBC 7.1 k/uL (3.8-10.6)
--- NOTE | 2022-10-28 07:45 | P.PN ---
Progress Note - Text Progress Note Date: 10/28/22 (0726) Anesthesia Postop day 1 Subjective: Status Post robotic vaginal hysterectomy with Duramorph. Patient seen and examined. Doing well without complaint. VAS for out of 10rest able. No nausea or vomiting. Mild pruritus tolerable.. Afebrile. Gross lower extremity strength intact. Without apparent anesthetic complications. Objective: Vital signs reviewed Heart: Regular Rate Lungs: Good chest excursion Abdomen: Appears nondistended Assessment: Status post robotic vaginal hysterectomy with Duramorph postop day 1 Plan: Continue current care with your medical management.
[2022-10-28] MEDS: diphenhydrAMINE 50 MG/ML 1 ML VIAL IVP PRN (07:55)
--- NOTE | 2022-10-28 09:17 | P.PN ---
Subjective Progress Note Date: 10/28/22 Principal diagnosis: Status post robotic total laparoscopic hysterectomy, bilateral salpingo- oophorectomy, TVT mid urethral sling, and cystoscopy The patient is doing well this morning and had no acute events overnight. She has some soreness in her throat from intubation and has pain in her mons. She reports minimal vaginal spotting. Marino catheter was removed recently and she has not yet had the urge to void. She is ambulating without difficulty. She has not yet passed gas. She feels slightly nauseous and does not yet have an appetite. She is tolerating fluids but has not yet tried to eat solids. She denies chest pain, shortness of breathing, fevers, or chills overnight. She denies pain or swelling in the legs. Objective - Vital Signs Vital signs: Vital Signs Temp 98.3 F 10/28/22 08:00 Pulse 81 10/28/22 08:00 Resp 16 10/28/22 08:00 BP 103/68 10/28/22 08:00 Pulse Ox 96 10/28/22 08:00 FiO2 Intake & Output 10/27/22 10/28/22 10/28/22 18:59 06:59 18:59 Intake Total 950 Output Total 525 1300 Balance 425 -1300 Intake: IV 950 Output: Urine 475 1300 Uretheral (Marino) 125 350 Estimated Blood Loss 50 Other: Voiding Method Indwelling Catheter - Exam Focused physical exam is performed. This is a healthy-appearing female, in no apparent distress. She is conversing and breathing and a nonlabored manner. She is warm and well-perfused. Her abdomen is soft and appropriately tender after surgery. Incisions are clean dry and intact. There is scant bleeding on her menstrual period. - Labs CBC & Chem 7: 10/28/22 06:16 Labs: Abnormal Lab Results - Last 24 Hours (Table) 10/28/22 Range/Units 06:16 RBC 3.41 L (3.80-5.40) m/uL Hgb 10.8 L (11.4-16.0) gm/dL Hct 32.8 L (34.0-46.0) % Assessment and Plan Assessment: 62 year old with stage 2 cystocele, stage 1 uterovaginal prolapse, and stress urinary incontinence POD#1 s/p robotic total laparoscopic hysterectomy, bilateral salpingo-oophorectomy, TVT mid urethral sling, and cystoscopy Plan: Continue inpatient management this morning, awaiting void and tolerance of solids. If the patient meets these milestones, she will be discharged home this afternoon. Time with Patient: Less than 30 (10 minutes)
[2022-10-28] MEDS ORDERED: ACETAMINOPHEN TAB 325 MG TAB PO PRN (10:10)
--- NOTE | 2022-10-28 13:08 | P.ANPRN ---
Procedure Note - Anesthesia - Epidural/Spinal Spinal Time Out Performed: Yes Date of Procedure: 10/27/22 Procedure Start Time: 07:04 Procedure Stop Time: 07:08 Location of Patient: PreOp Indication: Acute Post-Operative Pain, Requested by Surgeon Sedation Type: Sedate with meaningful contact maintained Preparation: Sterile Prep Position: Sitting Needle Guage: 25 Blood Aspirated: No Pain Paresthesia on Injection Noted: No Events: Uneventful and Well Tolerated (duramorph 300 mics plus [id number] mics)
[2022-10-28] MEDS: SIMETHICONE 80 MG CHEWABLE PO PRN ×2 (18:22→22:13)
[2022-10-29] MEDS: LACTATED RINGERS 1,000 ML IV SCH (00:40)
[2022-10-29] MEDS: ACETAMINOPHEN TAB 325 MG TAB PO PRN (04:22)
[2022-10-29] MEDS: diphenhydrAMINE 50 MG/ML 1 ML VIAL IVP PRN (04:23)
[2022-10-29] MEDS: SIMETHICONE 80 MG CHEWABLE PO PRN ×2 (04:32→09:08)
--- NOTE | 2022-10-29 08:51 | P.PN ---
Subjective Progress Note Date: 10/29/22 Principal diagnosis: Status post robotic total laparoscopic hysterectomy, bilateral salpingo- oophorectomy, TVT mid urethral sling, and cystoscopy The patient is doing well this morning and had no acute events overnight. Pain has improved this morning. Her abdomen is distended and uncomfortable, pain relieved with simethicone. She reports minimal vaginal spotting. Marino catheter was removed recently and she has not yet had the urge to void. She is ambulating without difficulty. She is passing flatus. She feels slightly nauseous. She ate half her dinner last night. She is tolerating fluids but has not yet tried to eat solids. She denies chest pain, shortness of breathing, fevers, or chills overnight. She denies pain or swelling in the legs. Objective - Vital Signs Vital signs: Vital Signs Temp 98 F 10/28/22 23:10 Pulse 76 10/28/22 23:10 Resp 18 10/28/22 23:10 BP 124/71 10/28/22 23:10 Pulse Ox 96 10/28/22 23:10 FiO2 Intake & Output 10/28/22 10/29/22 10/29/22 18:59 06:59 18:59 Intake Total 400 Output Total 1225 1700 Balance -1225 -1300 Intake: Oral 400 Output: Urine 1225 1700 Straight 625 1700 Other: # Voids 1 - Exam Focused physical exam is performed. This is a healthy-appearing female, in no apparent distress. She is conversing and breathing and a nonlabored manner. She is warm and well-perfused. Her abdomen is soft and appropriately tender after surgery, mildly distended. Incisions are clean dry and intact. There is scant bleeding on her menstrual period. - Labs CBC & Chem 7: 10/28/22 06:16 Assessment and Plan Assessment: 62 year old with stage 2 cystocele, stage 1 uterovaginal prolapse, and stress urinary incontinence POD#2 s/p robotic total laparoscopic hysterectomy, bilateral salpingo-oophorectomy, TVT mid urethral sling, and cystoscopy Plan: Continue inpatient management this morning, awaiting void. If the patient unable to void she will go home with indwelling catheter to be removed in the office. Time with Patient: Less than 30 (15 minutes)
[2022-10-29] MEDS: IBUPROFEN 600 MG TAB PO PRN (09:07)
[2022-10-29] MEDS: BENZOCAINE/MENTHOL LOZENG 1 EACH LOZENGE MUCOUS MEM PRN (09:08)
[2022-10-29 09:17] VITALS: BP 125/77; PULSE 72; RESP 16; TEMP 98.2
[2022-10-29] MEDS ORDERED: polyethylene glycoL 3350 17 GM POWD.PACK PO SCH (10:15)
--- NOTE | 2022-10-29 13:19 | P.DS ---
Providers Date of admission: 10/28/22 14:14 Expected date of discharge: 10/29/22 Attending physician: Elba Cobian MD Primary care physician: Patt Mulligan [facility] Course: This is a 62 year old female with stress urinary incontinence and pelvic organ prolapse who had robotic total laparoscopic hysterectomy, bilateral salpingoophorecty, TVT midurethral sling, and cystoscopy. She is postoperative day #2. When trying to the remove the wolf yesterday she experienced postoperative urinary retention. An indwelling catheter was replaced and attempted to be removed again this morning. The patient was only able to partially empty her bladder and again had urinary retention. The patient was reassured that this is a common complication of TVT Sling that usually resolves with short-term indwelling catheter use. Otherwise, she is meeting all postoperative milestones appropriately and feels well. She desires discharge home today. She will go home with indwelling urinary catheter to be removed in the office on Saturday 11/04 if she passes in-office voiding trial. I reviewed restricitons of no heavy lifting more than 15 pounds, pelvic rest for 6 weeks with the patient. Patient encouraged to call the office for any fever, worsening pain, heavy bleeding, foul-smelling vaginal discharge, or any other concerns. All questions answered. Assessment: 62 yo POD#2 s/p RATLH, BSO, TVT Sling, Cysto with postoperative urinary retention Patient Condition at Discharge: Good Plan - Discharge Summary Discharge Rx Participant: No New Discharge Prescriptions: New oxyCODONE HCL [Roxicodone] 5 mg PO Q6HR PRN 3 Days #12 tab PRN Reason: Breakthrough Pain Ibuprofen [Motrin] 600 mg PO Q6HR PRN #30 tab PRN Reason: Mild Pain (Scale 1 To 3) Acetaminophen Tab [Tylenol] 650 mg PO Q6H PRN #30 tab PRN Reason: Mild Pain (Scale 1 To 3) Ondansetron Odt [Zofran Odt] 4 mg PO Q8HR PRN #20 tab PRN Reason: Nausea And Vomiting No Action PARoxetine [Paxil] 10 mg PO HS amLODIPine BESYLATE 5 mg PO DAILY Vit D(Unk) 1 tab PO DAILY calcitrioL [Calcitriol] 0.25 mcg PO WEEKLY Discharge Medication List PARoxetine [Paxil] 10 mg PO HS 07/13/20 [History] Vit D(Unk) 1 tab PO DAILY 10/22/22 [History] amLODIPine BESYLATE 5 mg PO DAILY 10/22/22 [History] calcitrioL [Calcitriol] 0.25 mcg PO WEEKLY 10/22/22 [History] Acetaminophen Tab [Tylenol] 650 mg PO Q6H PRN #30 tab 10/28/22 [Rx] Ibuprofen [Motrin] 600 mg PO Q6HR PRN #30 tab 10/28/22 [Rx] oxyCODONE HCL [Roxicodone] 5 mg PO Q6HR PRN 3 Days #12 tab 10/28/22 [Rx] Ondansetron Odt [Zofran Odt] 4 mg PO Q8HR PRN #20 tab 10/29/22 [Rx] Follow up Appointment(s)/Referral(s): Elba Cobian MD [STAFF PHYSICIAN] - 11/04/22 (In office voiding trial) Patient Instructions/Handouts: Laparoscopic Hysterectomy (DC), Bladder Sling for Women (DC) Activity/Diet/Wound Care/Special Instructions: Pelvic rest for 6 weeks. No lifting heavier than 15 pounds for 4 weeks. Discharge Disposition: HOME SELF-CARE
== END 2022-10-29 15:31 | disposition home or self-care (01) ==
LOC: OR 05:40 → 4FBP 09:49 → OR 10-28 14:14 → 4FBP 10-28 14:14
PROVIDERS: ADMIT Obstetrics & Gynecology; ATTEND Obstetrics & Gynecology
DX: N81.2 Incomplete uterovaginal prolapse (principal); N39.3 Stress incontinence (female) (male); N99.89 Other postprocedural complications and disorders of genitourinary system; R33.9 Retention of urine, unspecified; N83.8 Other noninflammatory disorders of ovary, fallopian tube and broad ligament; I12.9 Hypertensive chronic kidney disease with stage 1 through stage 4 chronic kidney disease, or unspecified chronic kidney disease; N18.31 Chronic kidney disease, stage 3a; L29.9 Pruritus, unspecified; Z79.899 Other long term (current) drug therapy; Z87.442 Personal history of urinary calculi; Z98.890 Other specified postprocedural states; Z80.3 Family history of malignant neoplasm of breast
CPT/HCPCS: 57288; 58571; 62322; S2900; 85025; 86850; 86900; 86901; 88305

== ENCOUNTER 2022-10-31 11:59 | Emergency (ER) | payer BC ==
[2022-10-31] MEDS ORDERED: MORPHINE SULFATE 2 MG/ML SYRINGE IVP STA (12:21)
[2022-10-31] MEDS ORDERED: ONDANSETRON 4 MG/2 ML VIAL IVP STA (12:21)
[2022-10-31] MEDS ORDERED: SODIUM CHLORIDE 0.9% 1,000 ML IV STA (12:21)
[2022-10-31] MEDS ORDERED: PANTOPRAZOLE 40 MG/10 ML VIAL IVP STA (12:21)
--- NOTE | 2022-10-31 12:29 | ED ---
General Adult HPI - General Chief complaint: Recheck/Abnormal Lab/Rx Stated complaint: PO Sugery Comp Time Seen by Provider: 10/31/22 12:16 Source: patient, RN notes reviewed, old records reviewed Mode of arrival: ambulatory Limitations: no limitations - History of Present Illness Initial comments: Patient is a 62-year-old female with past medical history remarkable for CK D, hypertension who presents emergency Department 4 days postop hysterectomy and bladder sling surgery performed by Dr. Easton. Patient was seen in the office today after having one day of chills, subjective fevers, as well as abdominal discomfort around the sites of the incisions. She had a urinary catheter in place until today, was removed to the office after instilled 500 mL of fluid. She had no urinary output. Was sent here for further evaluation. Patient denies any chest pain or shortness breath. Denies any diarrhea. States she is having bowel movements. Denies any emesis but does endorse mild nausea. Denies any vaginal discharge or bleeding. Presents for further evaluation at this time. - Related Data Home Medications Medication Instructions Recorded Confirmed calcitrioL [Calcitriol] 0.25 mcg PO WEEKLY 10/22/22 10/31/22 Cholecalciferol [Vitamin D3 (25 50 mcg PO DAILY 10/31/22 10/31/22 Mcg = 1000 Iu)] Escitalopram [Lexapro] 10 mg PO HS 10/31/22 10/31/22 amLODIPine [Norvasc] 5 mg PO DAILY 10/31/22 10/31/22 Previous Rx's Medication Instructions Recorded Acetaminophen Tab [Tylenol] 650 mg PO Q6H PRN #30 tab 10/28/22 Ibuprofen [Motrin] 600 mg PO Q6HR PRN #30 tab 10/28/22 oxyCODONE HCL [Roxicodone] 5 mg PO Q6HR PRN 3 Days #12 tab 10/28/22 Ondansetron Odt [Zofran Odt] 4 mg PO Q8HR PRN #20 tab 10/29/22 Allergies Allergy/AdvReac Type Severity Reaction Status Date / Time No Known Allergies Allergy Verified 10/31/22 16:44 Review of Systems ROS Statement: Those systems with pertinent positive or pertinent negative responses have been documented in the HPI. Review of Systems: CONST: Denies fever EYES: Denies blurry vision ENT: Denies nasal congestion C/V: Denies Chest pain RESP: Denies shortness of breath GI: Endorses abdominal pain : Denies dysuria SKIN: Denies rash. MSK: Denies joint pain. NEURO: Denies headache ROS Other: All systems not noted in ROS Statement are negative. Past Medical History Past Medical History: Hypertension, Renal Disease Additional Past Medical History / Comment(s): kidney stones chronic kidney disease 3A History of Any Multi-Drug Resistant Organisms: None Reported Past Surgical History: Breast Surgery, Hernia Repair, Hysterectomy, Orthopedic Surgery Additional Past Surgical History / Comment(s): colonoscopy, breast biopsy, cole. bunionectomy, D & C, skin tags removed, inguinal hernia repair, bladder sling Past Anesthesia/Blood Transfusion Reactions: No Reported Reaction Additional Past Anesthesia/Blood Transfusion Reaction / Comment(s): no blood tx hx Past Psychological History: Anxiety Smoking Status: Never smoker Past Alcohol Use History: None Reported Past Drug Use History: None Reported - Past Family History Sister(s) Family Medical History: Cancer Additional Family Medical History / Comment(s): breast Mother Family Medical History: Cancer General Exam - General Exam Comments Initial Comments: General: Appears in mild distress secondary to abdominal discomfort as well as chills. HEAD: Normal with no signs of head trauma. EYES: PERRLA, EOMI, conjunctiva normal, no discharge. Pupils 3 mm and equal bilaterally. ENT: Hearing grossly intact, normal oropharynx. RESPIRATORY: Clear breath sounds bilaterally. No wheezes, rales, or rhonchi. C/V: Regular rate and rhythm. S1 and S2 auscultated, peripheral pulses 2+ and intact throughout ABD: Abdomen is soft, nondistended. Mildly tender to palpation around the surgical incisions which appear clean. Some bruising around the sites which is expected being 4 days postop. Seems to have slightly more tenderness to palpation in the suprapubic region. No guarding. No peritoneal signs. No rebound tenderness. EXT: Normal range of motion, no obvious deformity SKIN: Surgical incisions with some surrounding bruising being 4 days postop. NEURO: Alert and oriented 4. Limitations: no limitations Course Vital Signs 10/31/22 10/31/22 12:01 18:17 Temperature 98.1 F 98 F Pulse Rate 91 84 Respiratory 20 16 Rate Blood Pressure 115/76 133/78 O2 Sat by Pulse 98 100 Oximetry Medical Decision Making - Medical Decision Making Was pt. sent in by a medical professional or institution (, [facility], TRAINING ASSOCIATE, urgent care, hospital, or [facility]...) When possible be specific @ -Sent in by her REJOINER who performed her surgery Dr. Easton for further evaluation. Did you speak to anyone other than the patient for history (EMS, parent, family, police, friend...)? What history was obtained from this source @ -No Did you review nursing and triage notes (agree or disagree)? Why? @ -I reviewed and agree with nursing and triage notes Were old charts reviewed (outside hosp., previous admission, EMS record, old EKG, old radiological studies, urgent care reports/EKG's, [facility] records)? Report findings @ -No old charts were reviewed Differential Diagnosis (chest pain, altered mental status, abdominal pain women, abdominal pain men, vaginal bleeding, weakness, fever, dyspnea, syncope, headache, dizziness, GI bleed, back pain, seizure, CVA, palpatations, mental health, musculoskeletal)? @ -Differential Abdominal Pain Women: Appendicitis, Cholecystitis, diverticulosis, ischemic bowel, pancreatitis, hepa titis, UTI, gastroenteritis, AAA, incarcerated hernia, bowel obstruction, constipation, inflammatory bowel, hepatitis, peptic ulcer disease, splenic infarction, perforated viscus, vulvitis, ovarian torsion, PID, kidney stone, placenta abruption, this is not meant to be an all-inclusive list EKG interpreted by me (3pts min.). @ -None done X-rays interpreted by me (1pt min.). @ -None done CT interpreted by me (1pt min.). @ -CT abdomen and pelvis without contrast shows postsurgical changes but no other acute findings. Patient does have some air in the urinary bladder which is likely secondary to the recent catheter that was just removed prior to arrival. U/S interpreted by me (1pt. min.). @ -None done What testing was considered but not performed or refused? (CT, X-rays, U/S, labs)? Why? @ -None What meds were considered but not given or refused? Why? @ -None Did you discuss the management of the patient with other professionals (professionals i.e. , [facility], TRAINING ASSOCIATE, lab, RT, psych nurse, social work therapist, marine superintendent, teacher, information officer, casework manager)? Give summary @ -Discussed the patient's REJOINER Dr. Hays who was in agreement with plan.Specifically requested that patient received a liter of fluids and be notified of CT imaging shows anything significant. Once the patient have a urinary void on her own and if this is unsuccessful requested a Marino catheter be replaced the patient can follow-up with her in the office. This was done after we reviewed her normal laboratory workup. Was smoking cessation discussed for >3mins.? @ -No Was critical care preformed (if so, how long)? @ -Yes, 35 minutes. Were there social determinants of health that impacted care today? How? (Homelessness, low income, unemployed, alcoholism, drug addiction, transportation, low edu. Level, literacy, decrease access to med. care, long term, re hab)? @ -No Was there de-escalation of care discussed even if they declined (Discuss DNR or withdrawal of care, Hospice)? DNR status @ -No What co-morbidities impacted this encounter? (DM, HTN, Smoking, COPD, CAD, Cancer, CVA, ARF, Chemo, Hep., AIDS, mental health diagnosis, sleep apnea, morbid obesity)? @ -Recent hysterectomy and bladder sling surgery. Was patient admitted / discharged? Hospital course, mention meds given and route, prescriptions, significant lab abnormalities, going to OR and other pertinent info. @ -Based on the patient's presentation and physical exam, I'm concerned for possible postop complication following surgery. Differential includes infection, UTI. This list is not all-inclusive. We will obtain abdominal laboratory studies to begin with. We will also obtain a bladder scan. She'll be symptomatically treated with a 1 L fluid bolus, as well as IV morphine, Zofran, Protonix. Patient does have a contrast iodine ALLERGY that seems based on her story to be anaphylactic-like. I will reach out to her REJOINER Dr. Hays to see if she has any specific requests on imaging or labs. Patient was in agreement this plan. Vital signs within acceptable limits. I did speak with Dr. Hays, who was in agreement with the plan. Labs had returned at this point we did review them. Remarkable for CK D only. Minimal labs with him except for limits. Urinalysis still pending. We will obtain CT without contrast. CT unremarkable as well. On reevaluation, patient is feeling improved. We did discuss her workup. We'll continue to fluid hydrate her as well as attempt to obtain a urine. After discussion with her REJOINER, would like to see her have a good urinary void, and if this is unsatisfactory we will replace the Marino and she will follow up with her REJOINER next Thursday. She was in agreement with this plan. Patient was unable to urinate on her own. Bladder scan showed 500 mL in her bladder. Postvoid residual was similar. Marino catheter was placed. Urine was sent and was negative for infection. She'll be discharged home with her fully. She was in agreement with plan. Strict return precautions discussed. Case reviewed with Dr. Hays the patient's REJOINER and surgeon. I instructed the patient to follow up with their PCP in the next 1-3 days. I explained that the patient should return to the emergency department if they experience any worsening symptoms. Strict return precautions were discussed with the patient. The patient expressed understanding of these instructions. I answered all questions that the patient had. The patient was discharged home in good condition with their prescriptions and follow up information. Undiagnosed new problem with uncertain prognosis? @ -No Drug Therapy requiring intensive monitoring for toxicity (Heparin, Nitro, Insulin, Cardizem)? @ -No Were any procedures done? @ -No Diagnosis/symptom? @ -Marino catheter placement, urinary retention, postop pain Acute, or Chronic, or Acute on Chronic? @ -Acute Uncomplicated (without systemic symptoms) or Complicated (systemic symptoms)? @ -Complicated Side effects of treatment? @ -none Exacerbation, Progression, or Severe Exacerbation] @ -no Poses a threat to life or bodily function? @ -no - Lab Data Result diagrams: 10/31/22 12:26 10/31/22 12: Lab Results 10/31/22 10/31/22 10/31/22 Range/Units 12:26 12: 12: WBC 5.9 (3.8-10.6) k/uL RBC 4.31 (3.80-5.40) m/uL Hgb 13.6 (11.4-16.0) gm/dL Hct 40.4 (34.0-46.0) % MCV 93.7 (80.0-100.0) fL MCH 31.5 (25.0-35.0) pg MCHC 33.6 (31.0-37.0) g/dL RDW 12.4 (11.5-15.5) % Plt Count 284 (150-450) k/uL MPV 7.7 Neutrophils % 70 % Lymphocytes % 13 % Monocytes % 8 % Eosinophils % 7 % Basophils % 0 % Neutrophils # 4.2 (1.3-7.7) k/uL Lymphocytes # 0.8 L (1.0-4.8) k/uL Monocytes # 0.5 (0-1.0) k/uL Eosinophils # 0.4 (0-0.7) k/uL Basophils # 0.0 (0-0.2) k/uL PT 10.1 (9.0-12.0) sec INR 0.9 (<1.2) APTT 22.6 (22.0-30.0) sec Sodium (137-145) mmol/L Potassium (3.5-5.1) mmol/L Chloride (98-107) mmol/L Carbon Dioxide (22-30) mmol/L Anion Gap mmol/L BUN (7-17) mg/dL Creatinine (0.52-1.04) mg/dL Est GFR (CKD-EPI)AfAm (>60 ml/min/1.73 sqM) Est GFR (CKD-EPI)NonAf (>60 ml/min/1.73 sqM) Glucose (74-99) mg/dL Plasma Lactic Acid Nick (0.7-2.0) mmol/L Calcium (8.4-10.2) mg/dL Total Bilirubin (0.2-1.3) mg/dL AST (14-36) U/L ALT (4-34) U/L Alkaline Phosphatase (38-126) U/L Total Protein (6.3-8.2) g/dL Albumin (3.5-5.0) g/dL Amylase (30-110) U/L Lipase (23-300) U/L Urine Color Light Yellow Urine Appearance Clear (Clear) Urine pH 7.5 (5.0-8.0) Ur Specific [place] 1.006 (1.001-1.035) Urine Protein Negative (Negative) Urine Glucose (UA) Negative (Negative) Urine Ketones Trace H (Negative) Urine Blood Negative (Negative) Urine Nitrite Negative (Negative) Urine Bilirubin Negative (Negative) Urine Urobilinogen <2.0 (<2.0) mg/dL Ur Leukocyte Esterase Negative (Negative) 10/31/22 10/31/22 Range/Units 12:26 12:26 WBC (3.8-10.6) k/uL RBC (3.80-5.40) m/uL Hgb (11.4-16.0) gm/dL Hct (34.0-46.0) % MCV (80.0-100.0) fL MCH (25.0-35.0) pg MCHC (31.0-37.0) g/dL RDW (11.5-15.5) % Plt Count (150-450) k/uL MPV Neutrophils % % Lymphocytes % % Monocytes % % Eosinophils % % Basophils % % Neutrophils # (1.3-7.7) k/uL Lymphocytes # (1.0-4.8) k/uL Monocytes # (0-1.0) k/uL Eosinophils # (0-0.7) k/uL Basophils # (0-0.2) k/uL PT (9.0-12.0) sec INR (<1.2) APTT (22.0-30.0) sec Sodium 139 (137-145) mmol/L Potassium 4.0 (3.5-5.1) mmol/L Chloride 103 (98-107) mmol/L Carbon Dioxide 27 (22-30) mmol/L Anion Gap 9 mmol/L BUN 12 (7-17) mg/dL Creatinine 1.27 H (0.52-1.04) mg/dL Est GFR (CKD-EPI)AfAm 52 (>60 ml/min/1.73 sqM) Est GFR (CKD-EPI)NonAf 45 (>60 ml/min/1.73 sqM) Glucose 116 H (74-99) mg/dL Plasma Lactic Acid Nick 0.9 (0.7-2.0) mmol/L Calcium 9.4 (8.4-10.2) mg/dL Total Bilirubin 0.8 (0.2-1.3) mg/dL AST 25 (14-36) U/L ALT 18 (4-34) U/L Alkaline Phosphatase 100 (38-126) U/L Total Protein 7.4 (6.3-8.2) g/dL Albumin 4.3 (3.5-5.0) g/dL Amylase 54 (30-110) U/L Lipase 52 (23-300) U/L Urine Color Urine Appearance (Clear) Urine pH (5.0-8.0) Ur Specific [place] (1.001-1.035) Urine Protein (Negative) Urine Glucose (UA) (Negative) Urine Ketones (Negative) Urine Blood (Negative) Urine Nitrite (Negative) Urine Bilirubin (Negative) Urine Urobilinogen (<2.0) mg/dL Ur Leukocyte Esterase (Negative) Disposition Clinical Impression: Marino catheter in place, Urinary retention, Post-op pain Disposition: HOME SELF-CARE Condition: Good Instructions (If sedation given, give patient instructions): Marino Catheter Placement and Care (ED), Acute Urinary Retention in Women (ED) Is patient prescribed a controlled substance at d/c from ED?: No Referrals: Patt Castro III, MD [Primary Care Provider] - 1-2 days Elba Cobian MD [Family Provider] - 1-2 days Time of Disposition: 16:55
[2022-10-31 12:43] LABS: Basophils % (A) 0 %; Eosinophils # (A) 0.4 k/uL (0-0.7); Eosinophils % (A) 7 %; HCT 40.4 % (34.0-46.0); HGB 13.6 gm/dL (11.4-16.0); Lymphocytes # (A) 0.8 k/uL (1.0-4.8); Lymphocytes % (A) 13 %; MCH 31.5 pg (25.0-35.0); MCHC 33.6 g/dL (31.0-37.0); MCV 93.7 fL (80.0-100.0); Mean Platelet Volume 7.7; Monocytes # (A) 0.5 k/uL (0-1.0); Monocytes % (A) 8 %; Neutrophils # (A) 4.2 k/uL (1.3-7.7); Neutrophils % (A) 70 %; Platelet Count 284 k/uL (150-450); RBC 4.31 m/uL (3.80-5.40); RDW 12.4 % (11.5-15.5); WBC 5.9 k/uL (3.8-10.6)
[2022-10-31 12:52] LABS: INR 0.9 (<1.2); Partial Thromboplastin Time 22.6 sec (22.0-30.0); Prothrombin Time 10.1 sec (9.0-12.0)
[2022-10-31 13:01] LABS: Albumin 4.3 g/dL (3.5-5.0); Calcium 9.4 mg/dL (8.4-10.2); Total Bilirubin 0.8 mg/dL (0.2-1.3); Total Protein 7.4 g/dL (6.3-8.2)
--- NOTE | 2022-10-31 14:15 | CT ---
EXAMINATION TYPE: CT abdomen pelvis wo con DATE OF EXAM: 10/31/2022 COMPARISON: 11/08/2021 HISTORY: abdominal pain post op hysterectomy CT DLP: 635.9 mGycm Examination of the solid and hollow viscera is limited given the lack of contrast. FINDINGS: LUNG BASES: No evidence for nodule. No evidence for infiltrate. LIVER/GB: The gallbladder is unremarkable. No space-occupying hepatic lesion. PANCREAS: No pancreatic mass identified. No inflammatory process seen. SPLEEN: No evidence for splenomegaly. No intrasplenic lesions seen. ADRENALS: No adrenal nodules identified. No evidence for thickening. KIDNEYS: There is an atrophic right kidney with compensatory hypertrophy left kidney and probable par apelvic left renal cysts. No distinct renal mass identified. No hydronephrosis present or nephrolithi asis. Single focus of air within the urinary bladder. Has there been recent instrumentation or cathet erization? BOWEL: Appendix has a normal appearance. No evidence of bowel obstruction. No inflammatory process. Lymph nodes: No evidence for adenopathy greater than 1 cm. Abdominal aorta: Atheromatous changes seen. No evidence for aneurysm. Genital organs: Postoperative changes of hysterectomy. Vaginal cuff appears unremarkable. Mild postop erative stranding is present. No ovarian or adnexal mass seen at this time. Other: No significant abnormality. IMPRESSION: 1. Postoperative changes of hysterectomy. Vaginal cuff is unremarkable. No abnormal collections seen. Mild postoperative stranding is noted. 2. Atrophic right kidney. 3.Single focus of air within the urinary bladder. Has there been recent instrumentation or catheteriz ation?
[2022-10-31 17:47] LABS: Appearance,Urine Clear (Clear); Bilirubin,Urine Negative (Negative); Blood,Urine Negative (Negative); Color,Urine Light Yellow; Glucose,Urine (UA) Negative (Negative); Ketones,Urine Trace (Negative); Leukocyte Esterase,Urine Negative (Negative); Nitrite,Urine Negative (Negative); PH, Urine 7.5 (5.0-8.0); Protein,Urine Negative (Negative); Specific Gravity,Urine 1.006 (1.001-1.035); Urobilinogen,Urine <2.0 mg/dL (<2.0)
[2022-10-31 18:19] VITALS: BP 133/78; PULSE 84; RESP 16; TEMP 98
== END 2022-10-31 18:21 | disposition home or self-care (01) ==
LOC: EC 11:59
DX: Z46.6 Encounter for fitting and adjustment of urinary device (principal); R33.9 Retention of urine, unspecified; G89.18 Other acute postprocedural pain; I12.9 Hypertensive chronic kidney disease with stage 1 through stage 4 chronic kidney disease, or unspecified chronic kidney disease; N18.31 Chronic kidney disease, stage 3a; F41.9 Anxiety disorder, unspecified; Z79.899 Other long term (current) drug therapy
CPT/HCPCS: 99285; 96374; 96375 ×2; 96361; 36415; 80053; 82150; 83605; 83690; 85025; 85610; 85730; 81003; 74176; 51702; J2405; J2270; C9113

== ENCOUNTER → 2022-11-10 | Outpatient (CLI) | payer BC ==
[2022-11-10 19:54] LABS: Basophils # (A) 0.07 X 10*3/uL; Eosinophils # (A) 0.56 X 10*3/uL; Eosinophils % (A) 8.1 %; HCT 38.6 %; HGB 12.1 d/dL; Lymphocytes # (A) 1.21 X 10*3/uL; Lymphocytes % (A) 17.6 %; MCH 30.2 pg; MCHC 31.3 d/dL; MCV 96.3 FL; Mean Platelet Volume 10.9 FL; Monocytes # (A) 0.43 X 10*3/uL; Monocytes % (A) 6.2 %; NRBC Per 100 WBC 0 X 10*3/uL; Neutrophils % (A) 66.8 %; Platelet Count 118 X 10*3/uL; RBC 4.01 X 10*6/uL; RDW 12.2 %; WBC 6.89 X 10*3/uL
[2022-11-10 20:47] LABS: % Iron Saturation 16.85; ALT 12 U/L; AST 14 U/L; Albumin 3.9 d/dL; Albumin/Globulin Ratio 1.44 Ratio; Alkaline Phosphatase 101 U/L; BUN/Creat Ratio 14.83 Ratio; Blood Urea Nitrogen 17.8 mg/dL; Calcium 9.4 mg/dL; Carbon Dioxide 27.2 mmol/L; Chloride 105 mmol/L; Globulin 2.7 d/dL; Glucose 100 mg/dL; Iron 45 UG/DL; Magnesium 2.3 mg/dL; Phosphorus 3.7 mg/dL; Potassium 4.8 mmol/L; Sodium 142 mmol/L; Total Bilirubin 0.3 mg/dL; Total Iron Binding Capacity 267 UG/DL; Total Protein 6.6 d/dL; Uric Acid 4.6 mg/dL
[2022-11-10 21:01] LABS: Bilirubin,Urine Negative; Blood,Urine Moderate; Color,Urine Yellow; Ketones,Urine Negative; Nitrite,Urine Negative; PH, Urine 6.5; Specific Gravity,Urine 1.016; Urobilinogen,Urine 0.2
[2022-11-11 00:54] LABS: Ferritin 209 ng/mL
[2022-11-11 08:34] LABS: Appearance,Urine Cloudy (Clear)
== END | disposition home or self-care (01) ==
LOC: LABWHC1 12:02
PROVIDERS: ATTEND Nurse Practitioner Family
DX: N18.31 Chronic kidney disease, stage 3a (principal); D63.1 Anemia in chronic kidney disease; N39.0 Urinary tract infection, site not specified; E21.3 Hyperparathyroidism, unspecified; E55.9 Vitamin D deficiency, unspecified; M10.9 Gout, unspecified
CPT/HCPCS: 36415; 80053; 81001; 82306; 82728; 83540; 83550; 83735; 83970; 84100; 84550; 85025

== ENCOUNTER → 2022-11-14 | Outpatient (CLI) | payer BC ==
--- NOTE | 2022-11-14 07:48 | MM ---
Reason for Exam: Follow-up at short interval from prior study. Last screening mammogram was performed 6 month(s) ago. Patient History: Menarche at age 14. First Full-Term at age 33. Late child-bearing (after 30). Left ovary removed at age 62. Right ovary removed at age 62. Hysterectomy at age 62. Postmenopausal. Patient has history of breast feeding. 03/11/2000, Benign Excisional Biopsy on the left side. Niece had breast cancer, age 37. Mother had breast cancer, age 45. Sister had breast cancer, age 50. Sister had breast cancer, age 51. Risk Values: Halie 5 year model risk: 4.9%. NCI Lifetime model risk: 20.4%. Prior Study Comparison: 01/24/2000 Bilateral Screening Mammogram, [facility]. 02/06/2000 Left Special View Mammogram, [facility]. 12/29/2002 Bilateral Diagnostic Mammogram, [facility]. 11/26/2020 Bilateral MG screening mammo w CAD - 2, [facility]. 07/22/2021 Bilateral MG screening mammo w CAD - 2, [facility]. 05/13/2022 Bilateral MG 3D screening mammo w/cad, [facility]. 05/15/2022 Bilateral MG 3D work up w/cad [facility], [facility]. Tissue Density: Left: The breast tissue is heterogeneously dense. This may lower the sensitivity of mammography. Findings: Analyzed By CAD. Stable area in the left breast anterior middle depth slightly medial left posterior nipple line measuring 5 mm on slice 28 of 53 on prior exam No new suspicious masses, calcifications or distortions. Overall Assessment: Probably benign, BI-RAD 3 Management: Screening Mammogram of both breasts in 6 months. Results were given to the patient verbally at the time of exam. Patient should continue monthly self-breast exams. A clinical breast exam by your physician is recommended on an annual basis. This exam should not preclude additional follow-up of suspicious palpable abnormalities. Note on Halie scores and lifetime risk: 1. A Halie score greater than 3% is considered moderate risk. If this is the case, consider specialist referral to assess eligibility for a risk reducing agent. 2. If overall lifetime risk for the development of breast cancer is 20% or higher, the patient may qualify for future screening with alternating mammogram and breast MRI. Electronically signed and approved by: Jae Rodriguez DO
== END | disposition home or self-care (01) ==
LOC: RADMAMWWP 06:59
PROVIDERS: ATTEND Family Medicine
DX: R92.8 Other abnormal and inconclusive findings on diagnostic imaging of breast (principal); Z78.0 Asymptomatic menopausal state; Z80.3 Family history of malignant neoplasm of breast
CPT/HCPCS: 77061; 77065

== ENCOUNTER → 2023-02-02 | Outpatient (CLI) | payer BC ==
--- NOTE | 2023-02-02 12:49 | US ---
EXAMINATION TYPE: US kidneys/renal and bladder DATE OF EXAM: 02/02/2023 COMPARISON: US 2022 CLINICAL INDICATION: Female, 62 years old with history of N18.31 CHRONIC KIDNEY DISEASE, STAGE 3A; EXAM MEASUREMENTS: Right Kidney: 7.0 x 3.4 x 3.1 cm Left Kidney: 13.0 x 6.0 x 7.5 cm Right Kidney: atrophic Left Kidney: measures slightly large in size, multiple parapelvic cysts with largest measuring 2.7cm Bladder: wnl Bilateral Jets seen: yes No hydronephrosis or nephrolithiasis. No solid mass identified. Multiple left renal parapelvic cysts identified. Atrophy of the right kidney. Cortical medullary differentiation is maintained. The bladde r is anechoic and unremarkable. Bilateral ureteral jets identified. IMPRESSION: 1. No hydronephrosis or nephrolithiasis. 2. Atrophy of the right kidney. 3. Left parapelvic renal cysts.
== END | disposition home or self-care (01) ==
LOC: RADUSWWP 12:07
PROVIDERS: ATTEND Internal Medicine
DX: N18.31 Chronic kidney disease, stage 3a (principal); N26.1 Atrophy of kidney (terminal); N28.1 Cyst of kidney, acquired
CPT/HCPCS: 76770

== ENCOUNTER 2023-03-20 09:03 | Emergency (ER) | payer BC ==
[2023-03-20 09:30] VITALS: TEMP 98.5
[2023-03-20] MEDS ORDERED: SODIUM CHLORIDE 0.9% 1,000 ML IV STA (09:45)
[2023-03-20] MEDS ORDERED: methylPREDNISolone SOD SUCCI 125 MG/2 ML VIAL IV STA (09:46)
[2023-03-20] MEDS ORDERED: IPRATROPIUM-ALBUTEROL 3 ML NEB INHALATION STA ×2 (09:46→13:55)
[2023-03-20 10:19] LABS: Basophils % (A) 0 %; Eosinophils # (A) 0.2 k/uL (0-0.7); Eosinophils % (A) 4 %; HCT 41.6 % (34.0-46.0); HGB 13.6 gm/dL (11.4-16.0); Lymphocytes # (A) 2.6 k/uL (1.0-4.8); Lymphocytes % (A) 56 %; MCH 31.3 pg (25.0-35.0); MCHC 32.7 g/dL (31.0-37.0); MCV 95.5 fL (80.0-100.0); Mean Platelet Volume 10.5; Monocytes # (A) 0.3 k/uL (0-1.0); Monocytes % (A) 7 %; Neutrophils # (A) 1.5 k/uL (1.3-7.7); Neutrophils % (A) 31 %; Platelet Count 185 k/uL (150-450); RBC 4.36 m/uL (3.80-5.40); RDW 12.5 % (11.5-15.5); WBC 4.7 k/uL (3.8-10.6)
[2023-03-20 10:34] LABS: ALT 21 U/L (4-34); AST 28 U/L (14-36); African American GFR (CKD) 65 (>60 ml/min/1.73 sqM); Albumin 3.8 g/dL (3.5-5.0); Alkaline Phosphatase 80 U/L (38-126); Anion Gap 9 mmol/L; Blood Urea Nitrogen 29 mg/dL (7-17); Calcium 9.1 mg/dL (8.4-10.2); Carbon Dioxide 24 mmol/L (22-30); Chloride 105 mmol/L (98-107); Glucose 84 mg/dL (74-99); Magnesium 2.3 mg/dL (1.6-2.3); Non-African American GFR(CKD) 57 (>60 ml/min/1.73 sqM); Sodium 138 mmol/L (137-145); Total Bilirubin 0.7 mg/dL (0.2-1.3); Total Protein 7.1 g/dL (6.3-8.2)
[2023-03-20 11:01] VITALS: RESP 20
--- NOTE | 2023-03-20 11:10 | XR ---
EXAMINATION TYPE: XR chest 2V DATE OF EXAM: 03/20/2023 COMPARISON: 03/20/2023 HISTORY: Shortness of breath TECHNIQUE: Frontal and lateral views of the chest are obtained. FINDINGS: Scattered senescent parenchymal changes noted. Hyperinflation compatible with COPD. No evidence for infiltrate. No evidence for atelectasis. Heart size is stable. Mediastinal structures are stable and grossly unremarkable. No evidence for hilar prominence. Degenerative changes dorsal spine. IMPRESSION: 1. No evidence for acute pulmonary disease.
[2023-03-20] MEDS ORDERED: guaiFENesin-Coden 100-10MG/5ML 10 ML CUP PO STA (11:45)
[2023-03-20] MEDS ORDERED: diphenhydrAMINE 50 MG/ML 1 ML VIAL IVP STA (12:47)
[2023-03-20] MEDS ORDERED: SODIUM CHLORIDE 0.9% 1,000 ML IV ONE (12:47)
--- NOTE | 2023-03-20 13:54 | CT ---
EXAMINATION TYPE: CT chest angio for PE DATE OF EXAM: 03/20/2023 COMPARISON: None HISTORY: Chest pain/sob CT DLP: 224 mGycm Automated exposure control for dose reduction was used. CONTRAST: CT Chest for pulmonary embolism performed with without and with IV Contrast, patient injected with 10 0 ml mL of Isovue 370. FINDINGS: LUNGS: The lungs are grossly clear, there is no concerning parenchymal mass or nodule identified. T here is no pleural effusion or pneumothorax seen. The tracheobronchial tree is patent. MEDIASTINUM: There is satisfactory enhancement of the pulmonary artery and its branches, there is no CT evidence for pulmonary embolism. There are no greater than 1 cm hilar or mediastinal lymph nodes. No pericardial effusion is seen. OTHER: No additional significant abnormality is seen. IMPRESSION: 1. No evidence of pulmonary embolism. 2. No acute cardiopulmonary disease.
--- NOTE | 2023-03-20 14:48 | ED ---
General Adult HPI - General Chief complaint: Recheck/Abnormal Lab/Rx Stated complaint: Upper Resp. Time Seen by Provider: 03/20/23 09:34 Source: patient, RN notes reviewed Mode of arrival: ambulatory Limitations: no limitations - History of Present Illness Initial comments: 62-year-old female presents emergency department to complaint of shortness of breath. Patient states that she's been sick for last couple weeks. Patient states that she finally went to urgent care was placed on Medrol Dosepak, antibiotics. Patient states that she has not felt any better at this point. She has no history of asthma or COPD. Patient states she has a nonproductive cough states that she's been wheezing, fatigue, body aches. Patient had an x- ray at urgent care and was told that she had pneumonia. Patient denies any chest pain or palpitations. - Related Data Home Medications Medication Instructions Recorded Confirmed calcitrioL [Calcitriol] 0.25 mcg PO WEEKLY 10/22/22 10/31/22 Cholecalciferol [Vitamin D3 (25 50 mcg PO DAILY 10/31/22 10/31/22 Mcg = 1000 Iu)] Escitalopram [Lexapro] 10 mg PO HS 10/31/22 10/31/22 amLODIPine [Norvasc] 5 mg PO DAILY 10/31/22 10/31/22 Previous Rx's Medication Instructions Recorded Acetaminophen Tab [Tylenol] 650 mg PO Q6H PRN #30 tab 10/28/22 Ibuprofen [Motrin] 600 mg PO Q6HR PRN #30 tab 10/28/22 oxyCODONE HCL [Roxicodone] 5 mg PO Q6HR PRN 3 Days #12 tab 10/28/22 Ondansetron Odt [Zofran Odt] 4 mg PO Q8HR PRN #20 tab 10/29/22 Albuterol Inhaler [Ventolin Hfa 1 - 2 puff INHALATION Q4-6H PRN #1 03/20/23 Inhaler] each predniSONE 50 mg PO DAILY #5 tab 03/20/23 Allergies Allergy/AdvReac Type Severity Reaction Status Date / Time No Known Allergies Allergy Verified 03/20/23 09:17 Review of Systems ROS Statement: Those systems with pertinent positive or pertinent negative responses have been documented in the HPI. ROS Other: All systems not noted in ROS Statement are negative. Past Medical History Past Medical History: Hypertension, Renal Disease Additional Past Medical History / Comment(s): kidney stones chronic kidney disease 3A History of Any Multi-Drug Resistant Organisms: None Reported Past Surgical History: Breast Surgery, Hernia Repair, Hysterectomy, Orthopedic Surgery Additional Past Surgical History / Comment(s): colonoscopy, breast biopsy, cole. bunionectomy, D & C, skin tags removed, inguinal hernia repair, bladder sling Past Anesthesia/Blood Transfusion Reactions: No Reported Reaction Additional Past Anesthesia/Blood Transfusion Reaction / Comment(s): no blood tx hx Past Psychological History: Anxiety Smoking Status: Never smoker Past Alcohol Use History: None Reported Past Drug Use History: None Reported - Past Family History Sister(s) Family Medical History: Cancer Additional Family Medical History / Comment(s): breast Mother Family Medical History: Cancer General Exam Limitations: no limitations General appearance: alert, in no apparent distress Head exam: Present: atraumatic, normocephalic, normal inspection Eye exam: Present: normal appearance, PERRL, EOMI. Absent: scleral icterus, conjunctival injection, periorbital swelling ENT exam: Present: normal exam, normal oropharynx, mucous membranes moist Neck exam: Present: normal inspection, full ROM. Absent: tenderness, meningismus, lymphadenopathy Respiratory exam: Present: wheezes. Absent: normal lung sounds bilaterally, respiratory distress, rales, rhonchi, stridor Cardiovascular Exam: Present: regular rate, normal rhythm, normal heart sounds. Absent: systolic murmur, diastolic murmur, rubs, gallop, clicks Course Vital Signs 03/20/23 03/20/23 03/20/23 09:15 10:05 10:21 Temperature 98.5 F Pulse Rate 66 68 Respiratory 22 20 Rate Blood Pressure 143/90 O2 Sat by Pulse 100 Oximetry 03/20/23 03/20/23 03/20/23 10:30 10:31 10:46 Temperature Pulse Rate 72 72 72 Respiratory Rate Blood Pressure O2 Sat by Pulse Oximetry 03/20/23 03/20/23 11:39 13:02 Temperature Pulse Rate 77 97 Respiratory 20 20 Rate Blood Pressure 111/57 143/77 O2 Sat by Pulse 99 100 Oximetry EKG Findings - EKG Comments: EKG Findings:: EKG performed at 9.58 sinus bradycardia rate of 59 VT 187 QRS 112 QT /QTC 456/404 - EKG Results: EKG: interpreted by PARSEH Medical Decision Making - Medical Decision Making Was pt. sent in by a medical professional or institution (LORETO Schaeffer, SELLING SPECIALIST, urgent care, hospital, or halfway...) When possible be specific @ -No Did you speak to anyone other than the patient for history (EMS, parent, family, police, friend...)? What history was obtained from this source @ -No Did you review nursing and triage notes (agree or disagree)? Why? @ -I reviewed and agree with nursing and triage notes Were old charts reviewed (outside hosp., previous admission, EMS record, old EKG, old radiological studies, urgent care reports/EKG's, halfway records)? Report findings @ -No old charts were reviewed Differential Diagnosis (chest pain, altered mental status, abdominal pain women, abdominal pain men, vaginal bleeding, weakness, fever, dyspnea, syncope, headache, dizziness, GI bleed, back pain, seizure, CVA, palpatations, mental health, musculoskeletal)? @ -Differential Dyspnea: Coronary syndrome, arrhythmia, tamponade, asthma, COPD, pulmonary embolism, pneumonia, pneumothorax, pulmonary effusion, anaphylaxis, diabetic ketoacidosis, flailed chest, pulmonary contusion, diaphragmatic rupture, anemia, neuromuscular, this is not meant to be an all-inclusive list. ble EKG interpreted by me (3pts min.). @ -As above X-rays interpreted by me (1pt min.). @ -[Chest x-ray shows no acute cardio pulmonary process. CT interpreted by me (1pt min.). @ -CT Lona chest shows no evidence of PE, no infiltrates. U/S interpreted by me (1pt. min.). @ -None done What testing was considered but not performed or refused? (CT, X-rays, U/S, labs)? Why? @ -None What meds were considered but not given or refused? Why? @ -None Did you discuss the management of the patient with other professionals (professionals i.e. LORETO Schaeffer, SELLING SPECIALIST, lab, RT, psych nurse, foster care social worker, campus administrative assistant, teacher, public information officer, rehabilitation caseworker)? Give summary @ -No Was smoking cessation discussed for >3mins.? @ -No Was critical care preformed (if so, how long)? @ -No Were there social determinants of health that impacted care today? How? (Homelessness, low income, unemployed, alcoholism, drug addiction, transportation, low edu. Level, literacy, decrease access to med. care, shelter, rehab)? @ -No Was there de-escalation of care discussed even if they declined (Discuss DNR or withdrawal of care, Hospice)? DNR status @ -No What co-morbidities impacted this encounter? (DM, HTN, Smoking, COPD, CAD, Cancer, CVA, ARF, Chemo, Hep., AIDS, mental health diagnosis, sleep apnea, morbid obesity)? @ -None Was patient admitted / discharged? Hospital course, mention meds given and route, prescriptions, significant lab abnormalities, going to OR and other pertinent info. @ -Discharge patient was given multiple breathing treatments, steroids, Robitussin with improvement of symptoms. I do believe this is more of a on-call spasm from upper extremity infection. Patient was given albuterol inhaler, prednisone. She has no evidence of PE, negative workup. Undiagnosed new problem with uncertain prognosis? @ -No Drug Therapy requiring intensive monitoring for toxicity (Heparin, Nitro, Insulin, Cardizem)? @ -No Were any procedures done? @ -No Diagnosis/symptom? @ -URI with bronchospasm Acute, or Chronic, or Acute on Chronic? @ -[Acute Uncomplicated or complicated @Complicated Side effects of treatment? @ -No Exacerbation, Progression, or Severe Exacerbation? @ -No Poses a threat to life or bodily function? How? (Chest pain, [place], [place], pneumonia, PE, COPD, DKA, ARF, appy, cholecystitis, CVA, Diverticulitis, Homicidal, Suicidal, threat to staff... and all critical care pts) @ -No - Lab Data Result diagrams: 03/20/23 09:55 03/20/23 09:55 Lab Results 03/20/23 03/20/23 03/20/23 Range/Units 09:55 09:55 09:55 WBC 4.7 (3.8-10.6) k/uL RBC 4.36 (3.80-5.40) m/uL Hgb 13.6 (11.4-16.0) gm/dL Hct 41.6 (34.0-46.0) % MCV 95.5 (80.0-100.0) fL MCH 31.3 (25.0-35.0) pg MCHC 32.7 (31.0-37.0) g/dL RDW 12.5 (11.5-15.5) % Plt Count 185 (150-450) k/uL MPV 10.5 Neutrophils % 31 % Lymphocytes % 56 % Monocytes % 7 % Eosinophils % 4 % Basophils % 0 % Neutrophils # 1.5 (1.3-7.7) k/uL Lymphocytes # 2.6 (1.0-4.8) k/uL Monocytes # 0.3 (0-1.0) k/uL Eosinophils # 0.2 (0-0.7) k/uL Basophils # 0.0 (0-0.2) k/uL Sodium 138 (137-145) mmol/L Potassium 4.0 (3.5-5.1) mmol/L Chloride 105 (98-107) mmol/L Carbon Dioxide 24 (22-30) mmol/L Anion Gap 9 mmol/L BUN 29 H (7-17) mg/dL Creatinine 1.06 H (0.52-1.04) mg/dL Est GFR (CKD-EPI)AfAm 65 (>60 ml/min/1.73 sqM) Est GFR (CKD-EPI)NonAf 57 (>60 ml/min/1.73 sqM) Glucose 84 (74-99) mg/dL Plasma Lactic Acid Nick 0.9 (0.7-2.0) mmol/L Calcium 9.1 (8.4-10.2) mg/dL Magnesium 2.3 (1.6-2.3) mg/dL Total Bilirubin 0.7 (0.2-1.3) mg/dL AST 28 (14-36) U/L ALT 21 (4-34) U/L Alkaline Phosphatase 80 (38-126) U/L Total Protein 7.1 (6.3-8.2) g/dL Albumin 3.8 (3.5-5.0) g/dL Disposition Clinical Impression: Upper respiratory infection, Bronchospasm, acute Disposition: HOME SELF-CARE Condition: Stable Instructions (If sedation given, give patient instructions): Bronchospasm (ED) Additional Instructions: Please return to the Emergency Department if symptoms worsen or any other concerns. Prescriptions: predniSONE 50 mg PO DAILY #5 tab Albuterol Inhaler [Ventolin Hfa Inhaler] 1 - 2 puff INHALATION Q4-6H PRN #1 each PRN Reason: Shortness Of Breath Is patient prescribed a controlled substance at d/c from ED?: No Referrals: None,Stated [Primary Care Provider] - 1-2 days Time of Disposition: 14:48
[2023-03-20 15:44] VITALS: PULSE 94
[2023-03-20 15:45] VITALS: BP 129/72
== END 2023-03-20 15:50 | disposition home or self-care (01) ==
LOC: EC 09:03
DX: J06.9 Acute upper respiratory infection, unspecified (principal); J98.01 Acute bronchospasm; R00.1 Bradycardia, unspecified; I12.9 Hypertensive chronic kidney disease with stage 1 through stage 4 chronic kidney disease, or unspecified chronic kidney disease; N18.31 Chronic kidney disease, stage 3a; F41.9 Anxiety disorder, unspecified; Z79.899 Other long term (current) drug therapy
CPT/HCPCS: 36415; 94640 ×2; 93005; 80053; 83605; 83735; 85025; 71046; 71275; 99284; 96374; 96375; 96361 ×2; J1200; J2930; Q9967

== ENCOUNTER → 2023-05-18 | Outpatient (CLI) | payer BC ==
--- NOTE | 2023-05-19 16:37 | MM ---
Reason for Exam: Screening (asymptomatic). Last screening mammogram was performed 12 month(s) ago. Patient History: Menarche at age 14. First Full-Term at age 33. Late child-bearing (after 30). Left ovary removed at age 62. Right ovary removed at age 62. Hysterectomy at age 62. Postmenopausal. Patient has history of breast feeding. 03/11/2000, Benign Excisional Biopsy on the left side. Niece had breast cancer, age 37. Mother had breast cancer, age 45. Sister had breast cancer, age 50. Sister had breast cancer, age 51. Risk Values: Halie 5 year model risk: 4.9%. NCI Lifetime model risk: 20.4%. Prior Study Comparison: 05/13/2022 Bilateral MG 3D screening mammo w/cad, [facility]. 05/15/2022 Bilateral MG 3D work up w/cad [facility], [facility]. 11/14/2022 Left MG 3D diag mammo w/cad , [facility]. Tissue Density: The breast tissue is heterogeneously dense. This may lower the sensitivity of mammography. Findings: Analyzed By CAD. Pattern appears symmetrical and stable. Multiple scattered punctate calcifications are present bilaterally. No significant interval change is evident. Biopsy clip is in the anterior left breast No suspicious groups of microcalcifications, spiculated or lobular masses, architectural distortion or other secondary signs of malignancy are mammographically apparent. Overall Assessment: Benign, BI-RAD 2 Management: Screening Mammogram of both breasts in 1 year. A negative mammogram report should not preclude additional follow up of suspicious palpable abnormalities. Patient should continue monthly self breast exam. A clinical breast exam by your physician is recommended on an annual basis and results should be correlated with mammographic findings. Electronically signed and approved by: Riley Gonzales D.O. Radiologis
== END | disposition home or self-care (01) ==
LOC: RADMAMWWP 10:44
PROVIDERS: ATTEND Family Medicine
DX: Z12.31 Encounter for screening mammogram for malignant neoplasm of breast (principal); Z80.3 Family history of malignant neoplasm of breast; Z78.0 Asymptomatic menopausal state
CPT/HCPCS: 77063; 77067

== ENCOUNTER → 2023-09-14 | Outpatient (CLI) | payer BC ==
--- NOTE | 2023-09-14 19:22 | US ---
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 CKD MEASUREMENTS: RENAL SIZE: Right Kidney: 8.2 x 3.4 x 3.0cm Left Kidney: 13.2 x 5.8 x 5.2cm Right Kidney: atropic Left Kidney: parapelvic cysts Abd Aorta: unremarkable RESISTANCE INDEX Right: 0.69 Left: 0.67 RA/AO RATIO (< 3.5 ) Right: 1.1 Left: 1.4 RENAL ARTERY VELOCITY ( < 180 cm/s) Right: 120 cm/s Left: 163 cm/s Solid Fiber Paster Operator Notes: Limitations due to overlying bowel gas. Aorta appears unremarkable. Atropic ri ght kidney. Parapelvic cysts left kidney. 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 No evidence for stenosis by other metrics described above.
== END | disposition home or self-care (01) ==
LOC: RADUSWWP 08:57
PROVIDERS: ATTEND Surgery
DX: Q27.1 Congenital renal artery stenosis (principal); I12.9 Hypertensive chronic kidney disease with stage 1 through stage 4 chronic kidney disease, or unspecified chronic kidney disease; N18.9 Chronic kidney disease, unspecified
CPT/HCPCS: 93975

== ENCOUNTER → 2023-09-25 | Outpatient (CLI) | payer BC ==
[2023-09-25 16:58] LABS: Basophils # (A) 0.05 X 10*3/uL (0.00-0.10); Basophils % (A) 1.3 %; Eosinophils # (A) 0.22 X 10*3/uL (0.04-0.35); Eosinophils % (A) 5.5 %; HCT 40.2 % (37.2-46.3); HGB 13.1 g/dL (12.0-15.0); Immature Grans, Automated 0 %; Immature Platelet Fraction 11.5 % (1.1-6.1); Lymphocytes % (A) 40.3 %; MCH 30.7 pg (27.0-32.0); MCHC 32.6 g/dL (32.0-37.0); MCV 94.1 FL (80.0-97.0); Monocytes % (A) 10.1 %; NRBC Per 100 WBC 0 X 10*3/uL (0.00-0.01); Neutrophils % (A) 42.8 %; Platelet Count 161 X 10*3/uL (140-440); RBC 4.27 X 10*6/uL (4.10-5.20); RBC Morphology Normal (Normal); RDW 12.5 % (11.5-14.5); WBC 3.97 X 10*3/uL (4.50-10.00)
[2023-09-25 17:03] LABS: ALT 14 U/L (8-44); AST 21 U/L (13-35); Albumin 4.2 g/dL (3.8-4.9); Albumin/Globulin Ratio 1.68 Ratio (1.60-3.17); Alkaline Phosphatase 99 U/L (41-126); Blood Urea Nitrogen 17.4 mg/dL (9.0-27.0); Calcium 9.8 mg/dL (8.7-10.3); Carbon Dioxide 24.1 mmol/L (21.6-31.8); Chloride 107 mmol/L (96-109); Chol/HDL Ratio 3.48 Ratio; Globulin 2.5 g/dL (1.6-3.3); Glucose 97 mg/dL (70-110); LDL Cholesterol,Calculated 158.7 mg/dL (0.0-131.0); Potassium 4.1 mmol/L (3.5-5.5); Sodium 142 mmol/L (135-145); Total Bilirubin 0.4 mg/dL (0.3-1.2); Total Protein 6.7 g/dL (6.2-8.2); VLDL Calculation 13.04 mg/dL (5.00-40.00)
== END | disposition home or self-care (01) ==
LOC: LABWHC1 08:40
PROVIDERS: ATTEND Family Medicine
DX: Z00.00 Encounter for general adult medical examination without abnormal findings (principal); I12.9 Hypertensive chronic kidney disease with stage 1 through stage 4 chronic kidney disease, or unspecified chronic kidney disease; N18.9 Chronic kidney disease, unspecified
CPT/HCPCS: 36415; 80053; 80061; 82306; 82607; 82746; 83036; 84443; 85025; 86803

== ENCOUNTER → 2024-06-27 | Outpatient (CLI) | payer BC ==
--- NOTE | 2024-06-27 07:39 | US ---
EXAMINATION TYPE: US kidneys/renal and bladder DATE OF EXAM: 06/27/2024 COMPARISON: 09/14/2023 CLINICAL INDICATION: Female, 63 years old with history of N18.31 CKD; CKD for years, no symptoms TECHNIQUE: Grayscale imaging of the bilateral kidneys and urinary bladder: FINDINGS: EXAM MEASUREMENTS: Right Kidney: 6.5 x 3.4 x 3.3cm Left Kidney: 12.6 x 5.3 x 5.9cm Right Kidney: Chronic atrophy Left Kidney: Chronic hydronephrosis Bladder: Limited by incomplete distention. No nephrolithiasis. Cortical loss on the right kidney. Bladder incompletely distended. Left renal cor gay of normal thickness. IMPRESSION: 1. Right renal atrophy. 2. Stable mild left-sided hydronephrosis. [facility], , 06/27/2024 7:37 AM
== END | disposition home or self-care (01) ==
LOC: RADUSWWP 06:56
PROVIDERS: ATTEND Internal Medicine
DX: N18.31 Chronic kidney disease, stage 3a (principal); N26.1 Atrophy of kidney (terminal); N13.30 Unspecified hydronephrosis
CPT/HCPCS: 76770

== ENCOUNTER 2024-07-31 00:16 | Emergency (ER) | payer BC ==
[2024-07-31 00:24] VITALS: RESP 18; TEMP 98
[2024-07-31 01:18] LABS: Influenza A Not Detected (Not Detectd); Influenza B Not Detected (Not Detectd); RSV Not Detected (Not Detectd)
[2024-07-31] MEDS: DEXAMETHASONE SOD PHOSPHATE 10 MG/ML 1 ML VIAL IM STA (01:25)
[2024-07-31] MEDS: ALBUTEROL NEBULIZED 2.5 MG/3 ML INHALATION STA (01:27)
[2024-07-31] MEDS: IPRATROPIUM-ALBUTEROL 3 ML NEB INHALATION STA (01:27)
--- NOTE | 2024-07-31 02:01 | ED ---
General Adult HPI - General Chief complaint: Upper Respiratory Infection Stated complaint: SOB Time Seen by Provider: 07/31/24 00:56 Source: patient, RN notes reviewed, old records reviewed Mode of arrival: ambulatory Limitations: no limitations - History of Present Illness Initial comments: 83-year-old female with 6 days of cough, congestion, left earache and laryngitis. Patient states she had a fever and chills over this time. She denies central chest pain denies lower extremity pain or swelling. Patient states she is otherwise healthy. - Related Data Home Medications Medication Instructions Recorded Confirmed calcitrioL [Calcitriol] 0.25 mcg PO WEEKLY 10/22/22 10/31/22 Cholecalciferol [Vitamin D3 (25 50 mcg PO DAILY 10/31/22 10/31/22 Mcg = 1000 Iu)] Escitalopram [Lexapro] 10 mg PO HS 10/31/22 10/31/22 amLODIPine [Norvasc] 5 mg PO DAILY 10/31/22 10/31/22 Previous Rx's Medication Instructions Recorded Acetaminophen Tab [Tylenol] 650 mg PO Q6H PRN #30 tab 10/28/22 Ibuprofen [Motrin] 600 mg PO Q6HR PRN #30 tab 10/28/22 oxyCODONE HCL [Roxicodone] 5 mg PO Q6HR PRN 3 Days #12 tab 10/28/22 Ondansetron Odt [Zofran Odt] 4 mg PO Q8HR PRN #20 tab 10/29/22 Albuterol Inhaler [Ventolin Hfa 1 - 2 puff INHALATION Q4-6H PRN #1 03/20/23 Inhaler] each predniSONE 50 mg PO DAILY #5 tab 03/20/23 Albuterol Inhaler [Ventolin Hfa 1 - 2 puff INHALATION Q4HR PRN #1 07/31/24 Inhaler] each Amoxic-Pot Clav 875-125Mg 1 tab PO Q12HR 10 Days #20 tab 07/31/24 [Augmentin 875-125] methylPREDNISolone Dose Pack 4 mg PO DIRECTED #21 packet 07/31/24 [Medrol Dose Pack] Allergies Allergy/AdvReac Type Severity Reaction Status Date / Time No Known Allergies Allergy Verified 07/31/24 00:24 Review of Systems ROS Statement: Those systems with pertinent positive or pertinent negative responses have been documented in the HPI. ROS Other: All systems not noted in ROS Statement are negative. Past Medical History Past Medical History: Hypertension, Renal Disease Additional Past Medical History / Comment(s): kidney stones chronic kidney disease 3A History of Any Multi-Drug Resistant Organisms: None Reported Past Surgical History: Breast Surgery, Hernia Repair, Hysterectomy, Orthopedic Surgery Additional Past Surgical History / Comment(s): colonoscopy, breast biopsy, cole. bunionectomy, D & C, skin tags removed, inguinal hernia repair, bladder sling Past Anesthesia/Blood Transfusion Reactions: No Reported Reaction Additional Past Anesthesia/Blood Transfusion Reaction / Comment(s): no blood tx hx Past Psychological History: Anxiety Smoking Status: Never smoker Past Alcohol Use History: None Reported Past Drug Use History: None Reported - Past Family History Sister(s) Family Medical History: Cancer Additional Family Medical History / Comment(s): breast Mother Family Medical History: Cancer General Exam Limitations: no limitations General appearance: alert, in no apparent distress Head exam: Present: atraumatic, normocephalic Eye exam: Present: normal appearance, PERRL ENT exam: Absent: normal oropharynx (Female), TM's normal bilaterally (Left tympanic membrane is erythematous) Respiratory exam: Present: other (Bronchospastic cough). Absent: respiratory distress Cardiovascular Exam: Present: regular rate, normal rhythm GI/Abdominal exam: Present: soft. Absent: distended, tenderness Extremities exam: Present: normal inspection, normal capillary refill. Absent: pedal edema, calf tenderness Neurological exam: Present: alert, oriented X3, CN II-XII intact. Absent: motor sensory deficit Psychiatric exam: Present: normal affect, normal mood Skin exam: Present: warm, dry, intact. Absent: cyanosis, diaphoretic Course Vital Signs 07/31/24 07/31/24 07/31/24 00:18 01:27 01:38 Temperature 98.0 F Pulse Rate 104 H 78 78 Respiratory 18 18 18 Rate Blood Pressure 120/81 O2 Sat by Pulse 97 Oximetry 07/31/24 02:05 Temperature Pulse Rate 83 Respiratory 18 Rate Blood Pressure 136/75 O2 Sat by Pulse 93 L Oximetry Medical Decision Making - Medical Decision Making Was pt. sent in by a medical professional or institution (, PA, BONE PULLER, urgent care, hospital, or [place] [facility] facility...) When possible be specific @ -No Did you speak to anyone other than the patient for history (EMS, parent, family, police, friend...)? What history was obtained from this source @ -No Did you review nursing and triage notes (agree or disagree)? Why? @ -I reviewed and agree with nursing and triage notes Were old charts reviewed (outside hosp., previous admission, EMS record, old E KG, old radiological studies, urgent care reports/EKG's, [place] [facility] facility records)? Report findings @ -No old charts were reviewed Differential Diagnosis viral illness, bronchitis, pneumonia, influenza, coronavirus, laryngitis EKG interpreted by me (3pts min.). @ -As above X-rays interpreted by me (1pt min.). @ -Chest x-ray negative for focal pneumonia CT interpreted by me (1pt min.). @ -None done U/S interpreted by me (1pt. min.). @ -None done What testing was considered but not performed or refused? (CT, X-rays, U/S, labs)? Why? @ -None What meds were considered but not given or refused? Why? @ -None Did you discuss the management of the patient with other professionals (professionals i.e. , PA, BONE PULLER, lab, RT, psych nurse, geriatric social worker, journeyman pressman, teacher, chief medical officer, showcase trimmer)? Give summary @ -No Was smoking cessation discussed for >3mins.? @ -No Was critical care preformed (if so, how long)? @ -No Were there social determinants of health that impacted care today? How? (Homelessness, low income, unemployed, alcoholism, drug addiction, transportation, low edu. Level, literacy, decrease access to med. care, intermediate, rehab)? @ -No Was there de-escalation of care discussed even if they declined (Discuss DNR or withdrawal of care, Hospice)? DNR status @ -No What co-morbidities impacted this encounter? (DM, HTN, Smoking, COPD, CAD, Cancer, CVA, ARF, Chemo, Hep., AIDS, mental health diagnosis, sleep apnea, morbid obesity)? @ -None Was patient admitted / discharged? Hospital course, mention meds given and route, prescriptions, significant lab abnormalities, going to OR and other pertinent info. @ -63-year-old female with 6-day history of cough, congestion, earache, and laryngitis. Patient has pronounced bronchospastic cough. No respiratory distress, chest x-ray is clear without consolidated pneumonia, no pneumothorax. Vital signs are stable. Patient has normal CBC, normal CMP. Viral panel is negative. She does have erythematous bulging left tympanic membrane. She will be treated for both otitis media and acute bronchitis. Undiagnosed new problem with uncertain prognosis? @ -No Drug Therapy requiring intensive monitoring for toxicity (Heparin, Nitro, Insulin, Cardizem)? @ -No Were any procedures done? @ -No Diagnosis/symptom? @Otitis media, acute bronchitis Acute, or Chronic, or Acute on Chronic? @ -Acute Uncomplicated (without systemic symptoms) or Complicated (systemic symptoms)? @ -Default Side effects of treatment? @ -No Exacerbation, Progression, or Severe Exacerbation? @ -No Poses a threat to life or bodily function? How? (Chest pain, [place], [place], pneumonia, PE, COPD, DKA, ARF, appy, cholecystitis, CVA, Diverticulitis, Homicidal, Suicidal, threat to staff... and all critical care pts) @ -[Low risk at this time - Lab Data Result diagrams: 07/31/24 02:40 07/31/24 02:40 Lab Results 07/31/24 07/31/24 07/31/24 Range/Units 00:28 02:40 02:40 WBC 6.8 (3.8-10.6) k/uL RBC 4.10 (3.80-5.40) m/uL Hgb 12.8 (11.4-16.0) gm/dL Hct 38.4 (34.0-46.0) % MCV 93.7 (80.0-100.0) fL MCH 31.3 (25.0-35.0) pg MCHC 33.4 (31.0-37.0) g/dL RDW 12.3 (11.5-15.5) % Plt Count 199 (150-450) k/uL MPV 8.9 Neutrophils % 61 % Lymphocytes % 26 % Monocytes % 5 % Eosinophils % 6 % Basophils % 0 % Neutrophils # 4.1 (1.3-7.7) k/uL Lymphocytes # 1.8 (1.0-4.8) k/uL Monocytes # 0.4 (0-1.0) k/uL Eosinophils # 0.4 (0-0.7) k/uL Basophils # 0.0 (0-0.2) k/uL Sodium 136 L (137-145) mmol/L Potassium 4.3 (3.5-5.1) mmol/L Chloride 107 (98-107) mmol/L Carbon Dioxide 23 (22-30) mmol/L Anion Gap 6 mmol/L BUN 20 H (7-17) mg/dL Creatinine 1.17 H (0.52-1.04) mg/dL Est GFR (CKD-EPI)AfAm 57 (>60 ml/min/1.73 sqM) Est GFR (CKD-EPI)NonAf 50 (>60 ml/min/1.73 sqM) Glucose 136 H (74-99) mg/dL Calcium 9.1 (8.4-10.2) mg/dL Total Bilirubin 0.8 (0.2-1.3) mg/dL AST 23 (14-36) U/L ALT 13 (4-34) U/L Alkaline Phosphatase 77 (38-126) U/L Total Protein 6.7 (6.3-8.2) g/dL Albumin 3.6 (3.5-5.0) g/dL Influenza Type A (PCR) Not Detected (Not Detectd) Influenza Type B (PCR) Not Detected (Not Detectd) RSV (PCR) Not Detected (Not Detectd) SARS-CoV-2 (PCR) Not Detected (Not Detectd) Disposition Clinical Impression: Otitis media, Acute upper respiratory infection, Acute bronchitis Disposition: HOME SELF-CARE Condition: Fair Instructions (If sedation given, give patient instructions): Upper Respiratory Infection (ED), Ear Infection (ED), Acute Bronchitis (ED) Prescriptions: Amoxic-Pot Clav 875-125Mg [Augmentin 875-125] 1 tab PO Q12HR 10 Days #20 tab methylPREDNISolone Dose Pack [Medrol Dose Pack] 4 mg PO DIRECTED #21 packet Albuterol Inhaler [Ventolin Hfa Inhaler] 1 - 2 puff INHALATION Q4HR PRN #1 each PRN Reason: Shortness Of Breath Is patient prescribed a controlled substance at d/c from ED?: No Referrals: Patt Castro III, MD [Primary Care Provider] - 1-2 days Time of Disposition: 03:11
[2024-07-31 02:08] VITALS: BP 136/75
--- NOTE | 2024-07-31 02:24 | XR ---
EXAM: XR Chest, 2 Views CLINICAL HISTORY: ITS.REASON XR Reason: cough/fever TECHNIQUE: Frontal and lateral views of the chest. COMPARISON: Chest x-ray of 03/20/2023. FINDINGS: Lungs: Unremarkable. No consolidative changes or pleural effusions. Pleural space: See above. Heart: Heart is normal in size. No cardiomegaly. Mediastinum: Unremarkable. Normal mediastinal contour. Bones/joints: Moderate degenerative disc disease of the thoracic spine and levoscoliosis. No acute fracture. Vasculature: Atherosclerotic disease. Other findings: Mild hypoaeration. IMPRESSION: 1. Hypoaeration. 2. No consolidative changes or pleural effusions.
[2024-07-31] MEDS: SODIUM CHLORIDE 0.9% 1,000 ML IV ONE (02:39)
[2024-07-31] MEDS: AMOXIC-POT CLAV 875-125MG 1 EACH TAB PO STA (02:39)
[2024-07-31 02:55] LABS: Basophils % (A) 0 %; Eosinophils # (A) 0.4 k/uL (0-0.7); Eosinophils % (A) 6 %; HCT 38.4 % (34.0-46.0); HGB 12.8 gm/dL (11.4-16.0); Lymphocytes # (A) 1.8 k/uL (1.0-4.8); Lymphocytes % (A) 26 %; MCH 31.3 pg (25.0-35.0); MCHC 33.4 g/dL (31.0-37.0); MCV 93.7 fL (80.0-100.0); Mean Platelet Volume 8.9; Monocytes # (A) 0.4 k/uL (0-1.0); Monocytes % (A) 5 %; Neutrophils # (A) 4.1 k/uL (1.3-7.7); Neutrophils % (A) 61 %; Platelet Count 199 k/uL (150-450); RDW 12.3 % (11.5-15.5); WBC 6.8 k/uL (3.8-10.6)
[2024-07-31 03:05] LABS: ALT 13 U/L (4-34); African American GFR (CKD) 57 (>60 ml/min/1.73 sqM); Albumin 3.6 g/dL (3.5-5.0); Anion Gap 6 mmol/L; Blood Urea Nitrogen 20 mg/dL (7-17); Calcium 9.1 mg/dL (8.4-10.2); Carbon Dioxide 23 mmol/L (22-30); Chloride 107 mmol/L (98-107); Glucose 136 mg/dL (74-99); Non-African American GFR(CKD) 50 (>60 ml/min/1.73 sqM); Sodium 136 mmol/L (137-145); Total Bilirubin 0.8 mg/dL (0.2-1.3); Total Protein 6.7 g/dL (6.3-8.2)
[2024-07-31 03:08] LABS: AST 23 U/L (14-36); Alkaline Phosphatase 77 U/L (38-126); Potassium 4.3 mmol/L (3.5-5.1)
[2024-07-31 03:38] VITALS: PULSE 85
== END 2024-07-31 03:45 | disposition home or self-care (01) ==
LOC: EC 00:16
DX: H66.92 Otitis media, unspecified, left ear (principal); J06.9 Acute upper respiratory infection, unspecified; J20.9 Acute bronchitis, unspecified
CPT/HCPCS: 36415; 94640; 80053; 85025; 87636; 71046; 99285; 96372; 96360; J1100

== ENCOUNTER → 2024-10-12 | Outpatient (CLI) | payer BC ==
--- NOTE | 2024-10-12 14:24 | MM ---
Reason for Exam: Screening (asymptomatic). Last mammogram was performed 1 year(s) and 5 month(s) ago. Patient History: Menarche at age 14. First Full-Term at age 33. Late child-bearing (after 30). Left ovary removed at age 62. Right ovary removed at age 62. Hysterectomy at age 62. Postmenopausal. Patient has history of breast feeding. 03/11/2000, Benign Excisional Biopsy on the left side. Niece had breast cancer, age 37. Mother had breast cancer, age 45. Sister had breast cancer, age 50. Sister had breast cancer, age 51. Risk Values: Halie 5 year model risk: 5.1%. NCI Lifetime model risk: 19.2%. Prior Study Comparison: 05/15/2022 Bilateral MG 3D work up w/cad [facility], [facility]. 11/14/2022 Left MG 3D diag mammo w/cad , [facility]. 05/18/2023 Bilateral MG 3D screening mammo w/cad, [facility]. Tissue Density: There are scattered areas of fibroglandular density. Findings: Analyzed By CAD. Left breast biopsy clip. Right breast: There is no suspicious group of microcalcifications or new suspicious mass. Left breast: There is no suspicious group of microcalcifications or new suspicious mass. Overall Assessment: Negative, BI-RAD 1 Management: Screening Mammogram of both breasts in [address] [facility] will attempt to contact patient to return for supplemental views and ultrasound if indicated. Patient should continue monthly self-breast exams. A clinical breast exam by your physician is recommended on an annual basis. This exam should not preclude additional follow-up of suspicious palpable abnormalities. Note on Halie scores and lifetime risk: 1. A Halie score greater than 3% is considered moderate risk. If this is the case, consider specialist referral to assess eligibility for a risk reducing agent. 2. If overall lifetime risk for the development of breast cancer is 20% or higher, the patient may qualify for future screening with alternating mammogram and breast MRI. [facility], , 10/12/2024 11:37 AM. Electronically signed and approved by: Jae Rodriguez DO
== END | disposition home or self-care (01) ==
LOC: RADMAMWWP 11:26
PROVIDERS: ATTEND Family Medicine
DX: Z12.31 Encounter for screening mammogram for malignant neoplasm of breast (principal); R92.323 Mammographic fibroglandular density, bilateral breasts; Z78.0 Asymptomatic menopausal state; Z80.3 Family history of malignant neoplasm of breast
CPT/HCPCS: 77063; 77067